=== PATIENT | female | born 1970 | race Caucasian/White ===

== ENCOUNTER 2016-08-01 07:23 | Day surgery (SDC) | payer OTHER ==
[2016-08-01] MEDS ORDERED: LR 1,000 ML ONE (07:57)
[2016-08-01] MEDS ORDERED: MYLICON DROPS (DOSE) MISC ONE (09:28)
[2016-08-01] MEDS ORDERED: DIPRIVAN 1% ONE ×2 (10:10)
[2016-08-01] MEDS ORDERED: FENTANYL ONE (10:10)
[2016-08-01] MEDS ORDERED: XYLOCAINE-MPF 2% ONE (10:18)
[2016-08-01] MEDS ORDERED: ZOFRAN ONE (10:18)
[2016-08-01 10:41] VITALS: BP 115/62
--- NOTE | 2016-08-01 11:22 | OPERATIVE NOTE ---
PROCEDURE DATE: 08/01/2016 REQUESTING PHYSICIAN: Bhupendra Tompkins MD PRIMARY CARE DOCTOR: Bhupendra Tompkins MD PROCEDURES PERFORMED: 1. Esophagogastroduodenoscopy. 2. Colonoscopy. PREPROCEDURE DIAGNOSES: 1. Liver cirrhosis, unclear etiology, suspected to be fatty liver, complicated with portal hypertension, history of esophageal varices. 2. Dysphagia. 3. Reflux disease. 4. Mild anemia. 5. Thrombocytopenia with a platelet count of 60,000. 6. Mild coagulopathy, INR 1.3. 7. Obesity. POSTPROCEDURE DIAGNOSES: 1. Esophageal varices starting at 30 cm, extending up to the gastroesophageal junction at 37 cm, 4 columns, located at 12 o'clock, 2 o'clock, 4 o'clock, and 7 o'clock position, grade 2. No evidence of any bleeding stigmata noted. 2. Z-line visualized at 37 cm. 3. Gastritis in the body and antrum in the form of mucosal edema, chronicity suggesting portal hypertensive gastropathy. 4. Evidence of gastric fundic varices, small, on retroflexion. 5. Normal duodenal bulb and 2nd portion of duodenum. 6. Stool throughout the colon, mild, small amount, which was lavaged. 7. Evidence of hemorrhoids, internal, on retroflexion. 8. No evidence of any colon polyps or colon masses noted. 9. No evidence any rectal varices noted. ESTIMATED BLOOD LOSS: Minimal. COMPLICATIONS: None. ANESTHESIA: Monitored anesthesia care. SPECIMENS: None. DESCRIPTION OF PROCEDURE: After informed consent from the patient and family, explaining the risks, benefits, indications, and alternatives of the procedure, the patient was prepared for EGD and colonoscopy. The risks of the procedure, including infection, bleeding, pain, trauma to the surrounding structures, perforation, and were explained to the patient, among others, and she acknowledged understanding and agreed to proceed. The patient was brought to the OR and turned into the left lateral position. A bite block was placed into the patient's mouth. After adequate monitored anesthesia care, the upper scope was gently introduced through the oral vestibule all the way to the 2nd portion of the duodenum. The esophagus was normal in the proximal 1/3. The middle and distal esophagus showed evidence of esophageal varices starting at 30 cm, grade 2 varices located at 12 o'clock, 2 o 'clock, 4 o'clock, and 7 o'clock position. This area was carefully examined. I did not visualize any evidence of any bleeding stigmata. The Z-line was visualized at 37 cm. The scope was withdrawn into the stomach, showing evidence of erythema, mucosal edema, chronicity suggesting portal hypertensive gastropathy. The mucosa appeared like snake skin appearance. The stomach revealed fundic varices, small, otherwise normal cardia and incisura on retroflexion. There was evidence of erythema in the body and antrum, suggesting mild gastritis. The duodenal bulb and 2nd portion of the duodenum appeared normal. The scope was withdrawn into the stomach. The air was aspirated as the scope was withdrawn. The patient tolerated the procedure well. The patient was turned around. Rectal exam was performed, which revealed normal rectal tone. No masses were felt. There was no blood on the examining finger. The colonoscope was gently induced through the anal orifice all the way to the cecum. The cecum was identified by landmarks, IC valve and appendiceal orifice. The colon was tortuous. There was stool throughout the colon, which was lavaged. Lesions less than 5 mm could have been missed. I did not visualize any major polyps, tumors, or masses in the colon. Retroflexion in the colon revealed internal hemorrhoids, grade 2. There was no evidence of any rectal varices. The air was aspirate as the scope was withdrawn. The patient tolerated the procedure well and is currently being monitored in the OR in stable condition. I discussed the findings with the patient's and family and all questions were answered. RECOMMENDATIONS: 1. The patient will follow up with me in the clinic 4 weeks from discharge. 2. The patient will be started on Centrum Silver, 1 capsule p.o. daily for 3 months. 3. The patient will continue on nadolol 40 mg once daily. Hold for SBP <100 and /or HR less than 55 per minute. 4. The patient will continue on Lasix 40 mg once daily and Aldactone 100 mg once daily and hold for systolic pressure less than 100 mmHg. 5. The patient will be continuing on Protonix once daily. We will discontinue the Prilosec. 6. The patient will be started on lactulose 30 mL p.o. t.i.d. and hold for more than 3 bowel movements in 24 hours. 7. The patient will follow up with me in the clinic in 4 weeks to discuss the labs and ultrasound, which was done, ordered as an outpatient. 8. We may have to refer the patient to [facility] as the patient has shown signs of decompensation in the form of worsening thrombocytopenia and worsening esophageal varices. 9. The patient was also instructed to lose weight to achieve an ideal BMI. The above plan was discussed with the patient and family and all questions were answered. MTDD
== END 2016-08-01 10:40 | disposition home or self-care (01) ==
LOC: ENDO 07:23
PROVIDERS: ATTEND Internal Medicine
DX: K74.60 Unspecified cirrhosis of liver (principal); K76.6 Portal hypertension; I85.10 Secondary esophageal varices without bleeding; K21.9 Gastro-esophageal reflux disease without esophagitis; R13.10 Dysphagia, unspecified; D64.9 Anemia, unspecified
CPT/HCPCS: J2405; J3010; J7120

== ENCOUNTER 2016-10-07 15:00 | Inpatient (IN) ==
[2016-10-07] MEDS: PROTONIX IV SCH (17:38)
[2016-10-07] MEDS: SODIUM CHLORIDE 0.9% INJ SCH (17:38)
[2016-10-07] MEDS: LEVAQUIN 500 MG/D5W 500 MG/100 ML IVPB IV SCH (17:39)
[2016-10-07 19:45] LABS: BASO% 0.4 % (0.0-0.8); EOS# 0.08 X1000 (0.0-0.7); EOS% 3.2 % (0.0-10.0); HEMOGLOBIN 9.9 g/dL (12.0-16.0); LYMPH# 0.59 X1000 (1.2-3.4); LYMPH% 23.7 % (20.5-51.1); MANUAL DIFF NEEDED? YES; MCH 37.8 PG (27-31); MCV 114.5 FL (81-99); MONO# 0.28 X1000 (0.11-0.59); MONO% 11.2 % (1.7-9.3); MPV 11.8 FL (7.4-10.4); NEUT% 61.5 % (42.2-75.2); PLT 67 X1000 (130-400); RBC 2.62 XMIL (4.2-5.4)
[2016-10-07 19:55] LABS: INR 1.37; PROTIME 14.7 Seconds (9.2-11.7); PTT 32.2 Seconds (22.0-36.0)
[2016-10-07 20:03] LABS: LYMPHS 18 % (21-51); MONO 4 % (1-9)
[2016-10-07 20:04] LABS: AGAP 10; ALBUMIN 2.4 g/dL (3.5-5.0); ALKALINE PHOSPHATASE 73 U/L (32-104); BUN 17 mg/dL (8-22); CALCIUM 7.6 mg/dL (8.8-10.2); CHLORIDE 108 mmol/L (98-107); COSMO 280; GOT 38 U/L (10-30); GPT 17 U/L (10-36); POTASSIUM 4.2 mmol/L (3.5-5.1); SODIUM 140 mmol/L (136-145); TCO2 22 mmol/L (25-35); TOTAL BILIRUBIN 2.17 mg/dL (0.20-1.00); TOTAL PROTEIN 5.2 g/dL (6.3-8.3)
[2016-10-07 20:58] LABS: HEMOGLOBIN A1C 4.2 % (4.8-6.0)
--- NOTE | 2016-10-07 21:21 | HISTORY AND PHYSICAL ---
HISTORY OF PRESENT ILLNESS: 46-year-old white female patient, known case of cirrhosis of the liver, esophageal varices, admitted with abdominal pain, leg swelling, mild shortness of breath. Not able to tolerate Aldactone. Patient did have some nausea. The patient was feeling weak. I evaluated patient in the office. The patient was jaundiced. Had bilateral leg swelling. Decided to admit the patient for further care. Discussed her my concern was subacute bacterial peritonitis. Patient did have ascites, vague generalized abdominal tenderness. She did have bilateral leg swelling. Bibasilar crepitation in the lung. PARTS CONTROL CLERK. Alert, awake able to move all 4 limbs. Overall plan discussed with the patient and she is in agreement. LAB DATA: Revealed hemoglobin 9.9, hematocrit 30, WBC count 2.49, platelet count was 67,000. The patient did have mild left shift. PT/INR 1.37, PTT was 32. D-dimer was 3.14. Total bilirubin was 2.17. The patient does have elevated D-dimer. She had history of mild shortness of breath, bilateral leg swelling. I am going to get CTA of the pulmonary artery for further evaluation. I already ordered venous Doppler. cc: Bhupendra Tompkins MD
[2016-10-08 03:35] LABS: URINE MICRO REVIEW NEEDED? NO; URINE SOURCE VOIDED
[2016-10-08 03:38] LABS: BILIRUBIN URINE NEGATIVE (NEGATIVE); BLOOD URINE NEGATIVE (NEGATIVE); COLOR YELLOW; GLUCOSE URINE NEGATIVE (NEGATIVE); LEUKOCYTES URINE NEGATIVE (NEGATIVE); NITRITE URINE NEGATIVE (NEGATIVE); PH URINE 6.5; PROTEIN URINE 30 mg/dL (NEGATIVE); TURBIDITY URINE CLEAR (CLEAR); UROBILINOGEN URINE 2 mg/dL (NORMAL)
[2016-10-08 03:39] LABS: UR EPITHELIAL CELLS <10 /HPF (<10); URINE BACTERIA 2+ /HPF; URINE RBC <10 /HPF (<10); URINE WBC <10 /HPF (<10)
--- NOTE | 2016-10-08 06:21 | PROGRESS NOTE ---
DATE: 10/08/2016 SUBJECTIVE: Ms. Moreau is feeling some better today. Her abdominal pain is less. She denied any nausea or vomiting. No high-grade fever or chills. No unusual shortness of breath. PHYSICAL EXAMINATION: Vital Signs: Her vital signs reviewed. Neck: Supple. No JVD. Lungs: Bilateral good air entry present. CVS: S1 and S2 heard. Abdomen: Soft, globular. Mild distention. Vague tenderness, though it is less. Extremities: Bilateral leg swelling, though it is less. HOT TAR ROOFER: Alert and awake. Able to move all 4 limbs. CONSIDERATION: The patient admitted with abdominal pain, suspected to be subacute bacterial peritonitis. Elevated D-dimer. CTA of the pulmonary arteries negative for pulmonary embolism. This was a preliminary report. CT scan of the abdomen and pelvis did reveal cirrhosis of the liver, ascites. I do not have official result. We will follow. The patient is scheduled to have a venous Doppler today and also continue rest of the treatment. Continue intravenous antibiotics. We did septic workup. Continue gastrointestinal prophylaxis. Overall plan discussed with the patient. She is in agreement. CT scan also revealed a small to moderate right pleural effusion, portal hypertension with large amount of ascites, and no pulmonary embolism. Plan discussed with the patient. She is in agreement. cc: Bhupendra Tompkins MD
--- NOTE | 2016-10-08 06:24 | HISTORY AND PHYSICAL ---
CHIEF COMPLAINT: Abdominal pain. HISTORY OF PRESENT ILLNESS: Ms. Moreau is a 46-year-old white female patient known case of cirrhosis of the liver secondary to fatty liver. The patient is noncompliant. She does have history of portal hypertension. Complaining of abdominal pain of 3 days' duration, the pain was diffuse abdominal pain, aching in nature, moderate in intensity, associated with nausea and vomiting. The patient vomited 3-4 times. The patient also had some diarrhea with mucus in the stool. Complaining of some chills and low-grade fever. I evaluated patient in the office. The patient did have diffuse abdominal tenderness. She does have mild ascites. With her history of cirrhosis I was concerned about subacute bacterial peritonitis. I decided to admit the patient for further workup care and treatment. Patient is in agreement. The patient is noncompliant to follow up. She is a vague and poor historian. The patient did have some runny nose, stuffy nose, sinus drainage. There was some blood in the sinus drainage. The patient did have cough with scanty sputum production. No typical chest pain or palpitations. Complaining of some abdominal distention. The patient was supposed to be on Aldactone, Lasix, nadolol, Phenergan, multivitamin and Protonix. The patient claims she was not able to tolerate her Aldactone and she was not taking it. Unquantified weight gain. At times, polyuria, polydipsia. Complaining of leg swelling. No heat or cold intolerance. She was feeling fatigued and tired. No further history available at this time. ALLERGIES: Oxycodone. HOME MEDICATIONS: 1. Lasix. 40 mg p.o. daily. 2. Aldactone 100 mg p.o. daily. 3. Protonix 40 mg daily. 4. Phenergan on p.r.n. basis. 5. Nadolol 40 mg p.o. daily. PAST MEDICAL HISTORY: 1. Fatty liver. 2. Cirrhosis of the liver. 3. Portal hypertension. 4. Gastritis. 5. The patient had abnormal Pap smear in the past. 6. Obesity. PERSONAL HISTORY: , lives with the . Nonsmoker. Denied alcohol and/or substance abuse. Independent in activities of daily living. FAMILY HISTORY: Father of pancreatic cancer. He also had abdominal and cerebral aneurysm and kidney stone. Mother is alive and had some arthritis. REVIEW OF SYSTEMS: As per HPI. PHYSICAL EXAMINATION: GENERAL: Middle-aged white female patient, in mild distress. VITAL SIGNS: On admission blood pressure 114/65, pulse 81, respirations 16, temperature 98.2 degrees. SKIN: Normal turgor. No petechiae. HEENT: Head atraumatic, normocephalic. [place] conjunctivae. Icteric sclerae. Extraocular muscle movement normal. Fundus sharp discs. Ears and nose benign.Neck: Supple. No JVD, thyromegaly or lymphadenopathy. Chest: Bilateral good air entry present. No rales or rhonchi. Cardiovascular: S1 and S2 heard. No gallop or thrill. Abdomen: Soft, globular. Bowel sounds present. Extremities: Globular. Diffuse abdominal tenderness. More tenderness right upper quadrant. Mild ascites. No guarding or rigidity. Extremities: Bilateral leg swelling. No acute DVT. Peripheral pulsation intact. MUNITIONS HANDLER SUPERVISOR: Alert, awake, oriented x3. Cranial nerves 2-12 grossly intact. Deep tendon reflex 2+. Plantars were downgoing. Muscle power 4/5 all 4 limbs. LABORATORY DATA: WBC count 2.49, hemoglobin 9.9, hematocrit 30, platelet count 69,000. The patient does have some left shift and macrocytosis. PT/INR 1.37 D-dimer 3.14. Electrolytes fairly benign. Hemoglobin A1c was 4.2, calcium 7.6, albumin 2.4, corrected calcium was normal. Urinalysis did reveal 2+ bacteria. Urine culture result is pending. Patient admitted with abdominal pain in a patient with cirrhosis of the liver ascites. I would like to rule out subacute bacterial peritonitis. Patient does have pancytopenia most likely due to her chronic liver disease and hypersplenism. She does have abnormal urinalysis. I am going to wait for urine culture. The patient does have history suggestive of esophageal varices, gastritis and reflux disease. Had elevated D-dimer. I did discuss with the patient about risk of contrast induced nephropathy. The patient understood and agreed. I did CT of the pulmonary artery. Also did CT scan of the abdomen and pelvis for further evaluation. I did discuss her presentation with her rating specialist who is going to evaluate the patient today. We will get did a venous Doppler of the lower limbs. Ultrasound-guided ascites tape and analysis of the ascitic fluid. cc: Bhupendra Tompkins MD
--- NOTE | 2016-10-08 08:11 | Diag Imaging Result Doc PS360 ---
CHEST-2 VIEWS - 10/08/2016 6:13 AM INDICATION: Abdominal pain COMPARISON: 07/18/2016 FINDINGS: There is a trace right pleural effusion. Otherwise the lungs are clear and the heart size is normal. No pneumothorax. IMPRESSION: Trace right pleural effusion, otherwise negative. Electronically signed by Damien Pollock 10/08/2016 7:40 AM
[2016-10-08] MEDS ORDERED: LASIX PO SCH (09:00)
[2016-10-08] MEDS ORDERED: ALDACTONE PO SCH (09:00)
--- NOTE | 2016-10-08 09:29 | Diag Imaging Result Doc PS360 ---
US PARACENTESIS - 10/08/2016 INDICATION: Ascites COMPARISON: None FINDINGS: The risks and benefits of the procedure were discussed with the patient. All questions were answered. Written and verbal consent was obtained. Ultrasound scanning demonstrated ascites. Overlying skin was prepped and draped in sterile fashion. Anesthesia was achieved with injection of 10 cc 1% lidocaine. The paracentesis catheter was advanced until the return of ascites fluid. 2 L was aspirated. The catheter was withdrawn intact. The patient reported no symptoms from the procedure. IMPRESSION: Successful and uncomplicated ultrasound-guided paracentesis. Electronically signed by Damien Pollock 10/08/2016 9:27 AM
[2016-10-08] MEDS: CORGARD PO SCH (10:15)
--- NOTE | 2016-10-08 10:40 | Diag Imaging Result Doc PS360 ---
EXAM: ABD/PELVIS/PULM ARTERIES COMPARISON: None. FINDINGS: CTA CHEST: There is mild motion artifact, which may limit sensitivity for detecting small pulmonary emboli. However, there is no definite pulmonary artery filling defect to indicate pulmonary embolism. There is no evidence of aortic aneurysm. There are a few calcified mediastinal and right hilar lymph nodes indicating prior granulomatous disease. Otherwise, there is no evidence of significant mediastinal or hilar lymphadenopathy. There are a few paraesophageal varices, mainly seen at the distal esophagus. There is a small to moderate-sized right pleural effusion. There is trace patchy subsegmental atelectasis bilaterally. Lungs are grossly clear, otherwise. Abdomen/pelvis: There has been a previous cholecystectomy. The liver exhibits a very nodular contour compatible with cirrhosis. No well-defined hepatic masses identified. There is marked splenomegaly. The spleen measures up to 19.2 cm in the greatest axial length. There are a few dilated varices near the splenic hilum and near to ventral abdominal wall. There are larger varices in the periaortic region. There is moderate to large ascites throughout the abdomen and pelvis. There is marked right renal atrophy. There is evidence of a prior appendectomy. There is no evidence of bowel obstruction. The remainder of the solid viscera of the abdomen and pelvis and the remainder of the GI tract are essentially unremarkable. There is surrounding soft tissue anasarca. IMPRESSION: 1.No evidence of pulmonary embolism. 2.Small to moderate-sized right pleural effusion. 3.Cirrhosis. 4.Marked splenomegaly with intra-abdominal varices consistent with portal hypertension. 5.Moderate to large ascites and body wall anasarca. 6.Other incidental/nonacute findings detailed above. Electronically signed by Paolo Atwood 10/08/2016 10:38 AM
[2016-10-08] MEDS: LEVAQUIN 500 MG/D5W 500 MG/100 ML IVPB IV SCH (17:13)
[2016-10-08] MEDS: SODIUM CHLORIDE 0.9% INJ SCH (17:14)
[2016-10-08] MEDS: PROTONIX IV SCH (17:14)
[2016-10-08 18:16] LABS: TOTAL PROT BODY FLUID 1.5 g/dL
[2016-10-08 18:52] LABS: DIFF NEEDED? YES; MONOS 76 %; POLYS 24 %; WBC BF 270 /cumm
[2016-10-08] MEDS: CENTRUM SILVER PO SCH (20:47)
[2016-10-08] MEDS: ICAR-C PO SCH (20:47)
--- NOTE | 2016-10-09 07:29 | PROGRESS NOTE ---
DATE: 10/09/2016 SUBJECTIVELY: Ms. Moreau is doing better. The patient had ultrasound guarded paracentesis done yesterday. Two liters of ascitic fluid were removed. Ascitic fluid had 270 WBCs, 24 polynuclear cells, and 76 mononuclear cells. The Gram stain of the fluid and culture are still pending. Patient's abdominal pain improved. She is tolerating food well. No high-grade fever or chills. No chest pain. OBJECTIVE: Vital Signs: Reviewed. She had low-grade fever of 99.4 degrees solutions developer today. Lungs: Bibasilar crepitations. Heart: S1 and S2 heard. Abdomen: Soft, globular. Bowel sounds present. Less tense. Extremities: No cyanosis, clubbing. Leg swelling better. BUSINESS ANALYST: Alert, awake. Able to move all 4 limbs. CONSIDERATION: 1. Ascites. 2. Cirrhosis of the liver. 3. Portal hypertension. 4. Deep vein thrombosis and pulmonary embolism rule out. PLAN: I am going to start her on SCD. Waiting for GI evaluation. Continue antibiotics. Overall plan discussed with the patient. She is in agreement. cc: Bhupendra Tompkins MD
[2016-10-09 07:47] LABS: BASO% 0.3 % (0.0-0.8); EOS# 0.07 X1000 (0.0-0.7); EOS% 2.4 % (0.0-10.0); HEMATOCRIT 31.3 % (37.0-47.0); HEMOGLOBIN 10.4 g/dL (12.0-16.0); LYMPH# 1.03 X1000 (1.2-3.4); LYMPH% 35.6 % (20.5-51.1); MANUAL DIFF NEEDED? YES; MCHC 33.2 g/dL (33-37); MCV 114.2 FL (81-99); MONO# 0.24 X1000 (0.11-0.59); MONO% 8.3 % (1.7-9.3); MPV 12.9 FL (7.4-10.4); NEUT% 53.4 % (42.2-75.2); PLT 77 X1000 (130-400); RBC 2.74 XMIL (4.2-5.4)
[2016-10-09 08:19] LABS: ALBUMIN 2.4 g/dL (3.5-5.0); MAGNESIUM 1.8 mg/dL (1.5-2.7); POTASSIUM 3.9 mmol/L (3.5-5.1); TOTAL BILIRUBIN 1.37 mg/dL (0.20-1.00); TOTAL PROTEIN 5.2 g/dL (6.3-8.3)
[2016-10-09 09:31] LABS: HYPOCHROM 1+; LYMPHS 24 % (21-51); MONO 18 % (1-9)
[2016-10-09] MEDS: CENTRUM SILVER PO SCH ×3 (09:55→20:17)
[2016-10-09] MEDS: ICAR-C PO SCH ×3 (09:56→20:17)
[2016-10-09] MEDS: CORGARD PO SCH (09:56)
[2016-10-09] MEDS: ALDACTONE PO SCH (09:56)
--- NOTE | 2016-10-09 11:58 | CONSULTATION ---
DATE OF CONSULTATION: 10/09/2016 REASONS FOR CONSULTATION: Increasing abdominal distention and abdominal discomfort. HISTORY OF PRESENT ILLNESS: This is a pleasant, 46-year-old lady with a known history of chronic liver disease secondary to fatty liver and associated cirrhosis. Patient has been noncompliant with her medications including diuretics. Patient at home had increasing abdominal distention and had some discomfort for the [address] Tompkins has admitted her for further evaluation and more so to rule out subacute bacterial peritonitis, as well as therapeutic paracentesis. ALLERGIES: Allergic to oxycodone. HOME MEDICATION: Lasix 40 mg, Aldactone 100 mg, Protonix 40 mg, nadolol 40 mg p.o. daily. PAST MEDICAL HISTORY: Fatty liver, cirrhosis of the liver, portal hypertension, gastritis, and obesity. PERSONAL HISTORY: . Lives with her . Nonsmoker. Does not smoke or drink. No substance abuse. FAMILY HISTORY: Father with pancreatic cancer. Mother is alive and has arthritis. REVIEW OF SYSTEMS: As in HPI. PHYSICAL EXAMINATION: General: Reveals a pleasant, middle-aged lady in mild distress. Vital Signs: On admission, blood pressure 114/65, pulse 81, respirations 16, temperature 98.2 degrees. HEENT: No conjunctival pallor. There is scleral icterus present. Heart: Normal first and second heart sounds. Lungs: Decreased breath sounds at the right base. Abdomen: Distended, somewhat tender on deep palpation but no rebound or rigidity suggestive of any peritoneal signs. Bowel sounds present and normal. Extremities: Bilateral edema present. Central Nervous System: No signs of hepatic encephalopathy. No asterixis. She is alert and oriented. LABORATORY DATA: White count 2.49, hematocrit 30, platelets 69,000. INR 1.37. Albumin low at 2.4. CT scan of the abdomen showed new onset right pleural effusion, increasing ascites, and abdominal wall anasarca. IMPRESSION AND PLAN: 1. Cirrhosis of the liver. 2. Ascites secondary to #1 with increasing shortness of breath. 3. Rule out subacute bacterial peritonitis. 4. Hypersplenism. 5. Coagulopathy secondary to cirrhosis. 6. Rule out urinary tract infection. PLAN: Patient is going down for abdominal paracentesis. We will follow up the cultures. Patient is already on Levaquin. We will not extend until we get the fluid. It does not seem that she has SBP; however, SBP can happen without any [place] peritoneal signs. We will also check the urinalysis. Continue the diuretics. We will follow. cc: MD Bhupendra Combs MD
--- NOTE | 2016-10-09 14:17 | PROGRESS NOTE ---
DATE: 10/09/2016 GASTROENTEROLOGY FOLLOWUP: SUBJECTIVE: Patient currently sitting in a chair. She denies any new complaints. She was able to have paracentesis done on 09/28/2016. At that time 2 L of fluid was aspirated. According to the radiologist's note, no complications were noted out of the procedure. The ascitic fluid test showed evidence of increased white cells more than 270, and out of which 24% were PMN white cells. Her fluid albumin was 0.7. Her SAAG is more than 1.1, suggesting portal hypertension, cirrhosis with ascites. Her peritoneal fluid culture shows no growth, no anaerobes. Blood culture has been negative x2. Stool for white cells are none seen. Stool for C. difficile toxin is negative and stool for C. difficile antigen is also negative. The patient denies any nausea or vomiting. She denies any fever, rigors, or chills. OBJECTIVE: Vitals: Temperature of 98.2, pulse rate of 76, respiratory rate of 16, blood pressure 101/48, saturating 100% on room air. Body weight of 222 pounds, 4.8 ounces. BMI of 38.2 kg/m2. General: The patient is obese, sitting in chair, in no acute distress. HEENT: Pale conjunctivae. No icterus. Neck: Supple. Abdomen: Obese, soft, nontender, nondistended. No guarding. No rebound. Extremities: No cyanosis or clubbing. Neurologic: She is alert, awake, oriented x3. DIAGNOSTIC DATA: Labs: Hemoglobin and hematocrit is 10.4 and 31.3, white count of 2.89, platelet count of 77,000, MCV of 114.2, INR of 1.37, PT of 14.7, PTT of 32.2. Sodium of 139, potassium 3.9, chloride 108, bicarb 24, anion gap 7, BUN of 15, creatinine 1, glucose of 85, calcium is 8, magnesium 1.8. Total bilirubin is 1.37. AST 37, ALT 15, alkaline phosphatase 71, total protein 5.2, albumin of 2.4, folate of 15. Her urinalysis showing 2 urobilinogen plus mild protein. 1. Abdominal pelvic CT scan done on 10/07/2016 showed no evidence of pulmonary embolism. 2. Small to moderate side size right sided pleural effusion. 3. Cirrhosis. 4. Marked splenomegaly with intra-abdominal varices consistent with portal hypertension. 5. Moderate to large ascites and body wall anasarca. 6. Evidence of prior appendectomy. IMPRESSION AND PLAN: 1. Liver cirrhosis secondary to nonalcoholic steatohepatitis complicated with portal hypertension, ascites, thrombocytopenia. In this regard we will avoid any hepatotoxic drugs. We will give her low-salt diet less than 2 g in 24 hours. We will restrict the free fluid to less than 1.5 L in 24 hours. We will start the patient on low dose Lasix 20 mg daily and Aldactone 50 mg once daily and hold them if the patient's potassium is more than 5 or creatinine is more than 1.5. We will watch daily weight and watch ins and outs. 2. Likely spontaneous bacterial peritonitis with a high white count in the ascitic tap while being on Levaquin. In this regard she will continue on Levaquin 500 mg once daily for 2 weeks. We will start on albumin 25 g IV once daily for 3 days. 3. Obesity. The patient is counseled to lose weight. 4. Anemia. Continue watch and type and cross, and transfuse as needed. 5. Continue multivitamin and iron b.i.d. 6. Gastrointestinal prophylaxis with proton pump inhibitors. 7. Bowel regimen. We will start her on lactulose. We will also check her ammonia level as well. 8. The patient was also instructed to continue her followup with [facility]. She had seen them once last year. The above plan of care was discussed with the patient and all questions answered. cc: MD Bhupendra Hidalgo MD
[2016-10-09] MEDS: SODIUM CHLORIDE 0.9% INJ SCH (16:07)
[2016-10-09] MEDS: PROTONIX IV SCH (16:07)
[2016-10-09] MEDS: LACTULOSE PO SCH ×3 (16:07→20:17)
[2016-10-09] MEDS: ALBUMIN 25% IV SCH (16:42)
[2016-10-09] MEDS: LEVAQUIN 500 MG/D5W 500 MG/100 ML IVPB IV SCH (17:13)
--- NOTE | 2016-10-10 07:11 | PROGRESS NOTE ---
DATE: 10/10/2016 SUBJECTIVE: Ms. Moreau is doing better. Her abdominal pain is improving. She denied any high- grade fever or chills. No nausea or vomiting. Denied any chest pain. GI recommendation noted. No unusual cough or expectoration. PHYSICAL EXAMINATION: Vital Signs: Her vital signs reviewed. Lungs: Bilateral good air entry present. CVS: S1 and S2 heard. Abdomen: Soft, globular. Bowel sounds present. The patient still had some ascites. Extremities: No cyanosis, clubbing. No acute DVT. PIPELINE WELDER: Alert, awake. Able to move all 4 limbs. LAB DATA: Done yesterday, hemoglobin 10.4, hematocrit 31.3, WBC count 2.89, platelet count 77,000. Electrolyte results also reviewed. Total bilirubin 1.37. PROBLEM LIST: 1. Cirrhosis of the liver. 2. Possible subacute bacterial peritonitis. 3. Portal hypertension. 4. Pancytopenia, most likely due to her chronic liver disease. PLAN: Patient is refusing to wear her SCDs. We did explained her risk of DVT. Patient is not a candidate for Lovenox because of her chronic liver disease. We encouraged early ambulation. We will continue current treatment. Peritoneal fluid culture, there was no growth. Stool workup is negative. The patient is getting IV albumin. If she continued to do well, I am planning to discharge her home tomorrow. cc: Bhupendra Tompkins MD
--- NOTE | 2016-10-10 09:38 | Extremity Venous Study ---
PROCEDURE NAME: Venous U/S Bilateral Legs - 10/07/2016 REFERRING PHYSICIAN: Bhupendra Tompkins MD INTERPRETING PHYSICIAN: Joseph Sinha MD TRANSFER CONTROLLER: [place] INDICATIONS: The patient has edema in the legs. FINDINGS: Bilateral lower extremity venous images accomplished. The common femoral, superficial femoral, deep femoral, popliteal, posterior tibial, peroneal, and greater saphenous are imaged bilaterally. The Doppler is used to evaluate the veins for spontaneity, phasicity, respiratory excursion, and distal augmentation. All veins are compressible. No intraluminal clot is seen. INTERPRETATION: No evidence of deep or superficial venous thrombosis in either lower extremity veins identified. cc: MD Bhupendra Venegas MD
[2016-10-10] MEDS: ALDACTONE PO SCH (09:46)
[2016-10-10] MEDS: ICAR-C PO SCH ×3 (09:46→20:17)
[2016-10-10] MEDS: LACTULOSE PO SCH ×3 (09:46→20:17)
[2016-10-10] MEDS: CORGARD PO SCH (09:47)
[2016-10-10] MEDS: CENTRUM SILVER PO SCH ×3 (09:47→20:17)
[2016-10-10] MEDS: LASIX PO SCH (09:47)
[2016-10-10] MEDS: ALBUMIN 25% IV SCH (09:48)
--- NOTE | 2016-10-10 11:24 | PROGRESS NOTE ---
DATE: 10/10/2016 SUBJECTIVE: Patient is currently resting in bed. She denies any fevers, rigors, chills, nausea, or vomiting. She has been having good bowel movements. She had 2 bowel movements today which were soft. She denies noticing any blood in the stools. She is feeling better. She is going to be discharged tomorrow. PHYSICAL EXAMINATION: Vital Signs: Temperature 98.3, pulse rate 72, respiratory rate 18, blood pressure 110/52, saturating 92% on room air. General Appearance: The is a moderately built, moderately nourished, sitting in bed, in no acute distress. HEENT: Mild pallor. No icterus. Pupils equal, react to light. Neck: Supple. Abdomen: Soft. No guarding, no rebound. Bowel sounds are present. Mild ascites, mild distention noted. Extremities: No cyanosis, clubbing. Neurologic: She is alert, awake, oriented x3. LABS: Her hemoglobin and hematocrit are 10.4 and 31.3, white count of 2.89, platelet count of 77,000, MCV of 114.2. INR of 1.37, PT of 14.7, PTT of 32.2. Sodium 139, potassium 3.9, chloride 100, bicarb 24, anion gap of 7, BUN of 15, creatinine of 1, glucose of 85, calcium is 8, magnesium 1.8. Total bilirubin is 1.37, AST 37, ALT 15, alkaline phosphatase is 71, total protein 5.2, albumin of 2.4, ammonia of 67. Urinalysis positive protein. Peritoneal fluid culture has been negative. Blood cultures negative. C. difficile toxin has been negative. Urine culture negative. IMPRESSION AND PLAN: 1. Liver cirrhosis attributed to fatty liver disease complicated with thrombocytopenia, mild coagulopathy, hypoalbuminemia, ascites, hepatic encephalopathy. In this regard, I will continue to avoid hepatotoxic drugs. She will continue on low sodium diet, less than 2 g per 24 hours. 2. Restrict free fluid to less than 1.5 L per 24 hours. 3. Continue Lasix 20 mg once daily and Aldactone 50 mg once daily, and hold for creatinine more than 1.5 and systolic blood pressure less than 100. We will slowly advance the Lasix to 40 mg once daily and Aldactone to 100 mg daily if her kidney functions are normal. 4. Start on lactulose 30 mL b.i.d. for hyperammonemia and hepatic encephalopathy. 5. Anemia. She will continue Iron C b.i.d. 6. Macrocytic anemia which is likely secondary to chronic liver disease. Her B12 and folate level are normal. 7. Obesity. Patient was counseled to lose weight. 8. Likely spontaneous bacterial peritonitis with evidence of higher white count in the ascitic tap. We will continue Levaquin 500 mg daily for 2 weeks. She will continue on albumin once daily for 3 days. Tomorrow, most likely, if she is feeling better and labs are stable, she can probably be discharged home. I encouraged the patient to keep her followup with the [facility] liver transplant team. She will follow up with me in the office as scheduled every 6 months. We will need to check her labs and ultrasound every 6 months. 9. Above plan of care was discussed with the patient and all questions were answered. cc: MD Bhupendra Hidalgo MD
[2016-10-10] MEDS: SODIUM CHLORIDE 0.9% INJ SCH (16:13)
[2016-10-10] MEDS: PROTONIX IV SCH (16:13)
[2016-10-10] MEDS: LEVAQUIN 500 MG/D5W 500 MG/100 ML IVPB IV SCH (16:14)
[2016-10-11 05:21] LABS: EOS# 0.06 X1000 (0.0-0.7); EOS% 2.3 % (0.0-10.0); HEMATOCRIT 29.7 % (37.0-47.0); LYMPH# 0.75 X1000 (1.2-3.4); LYMPH% 28.7 % (20.5-51.1); MANUAL DIFF NEEDED? NO; MCHC 33.7 g/dL (33-37); MCV 112.9 FL (81-99); MONO# 0.28 X1000 (0.11-0.59); MONO% 10.7 % (1.7-9.3); NEUT% 58.3 % (42.2-75.2); PLT 57 X1000 (130-400); RBC 2.63 XMIL (4.2-5.4)
[2016-10-11 05:29] LABS: ALBUMIN 2.5 g/dL (3.5-5.0); POTASSIUM 4.1 mmol/L (3.5-5.1); TOTAL BILIRUBIN 1.34 mg/dL (0.20-1.00); TOTAL PROTEIN 5.1 g/dL (6.3-8.3)
--- NOTE | 2016-10-11 07:41 | DISCHARGE SUMMARY ---
ADMISSION DATE: 10/07/2016 DISCHARGE DATE: 10/11/2016 FINAL DISCHARGE DIAGNOSES: 1. Ascites secondary to nonalcoholic cirrhosis of the liver. 2. Possible subacute bacterial peritonitis. 3. Esophageal varices and portal hypertension. 4. Hypoalbuminemia. 5. Gastritis. 6. Reflux disease. 7. Elevated D-dimer. 8. Deep venous thrombosis and pulmonary embolism ruled out. HOSPITAL COURSE: Ms Moreau is a 46-year-old, white female patient, known case of cirrhosis of the liver came with abdominal pain, nausea, vomiting and some diarrhea. On exam patient did have generalized abdominal tenderness. I was concerned about subacute bacterial peritonitis. I evaluated the patient and decided to admit her for further care. HOSPITAL COURSE: We started patient on antibiotics. We did septic workup. The patient underwent ultrasound-guided peritoneal ascites tape. Fluid did have some WBC. Culture and Gram stain were negative. Tape done after patient was started on antibiotics. We decided to treat patient as subacute bacterial peritonitis. The patient had elevated D-dimer. We did venous Doppler and CTA of the pulmonary artery. Both were negative for DVT and pulmonary embolism. The patient also had therapeutic tape. They removed 2 L of ascitic fluid. Patient was started on antibiotics. The patient also had some hepatic encephalopathy with elevated ammonia level. The patient was given lactulose. Clinically the patient's condition improved. Abdominal pain improved. PHYSICAL EXAMINATION: Nausea and vomiting much better. Patient is tolerating medication well. Vital signs: Noted. Neck: Supple. No JVD. Lungs: Bilateral good air entry present. CVS: S1 and S2 heard. Abdomen: Soft, globular. Bowel sounds present. Less tense, nontender. BREAD STACKER: Alert, awake. Able to move all 4 limbs. Leg swelling also improved. LAB DATA: Done today hemoglobin 10, hematocrit 29.7. WBC count 2.61. Platelet count 57,000. The patient does have portal hypertension and hypersplenism. No active bleeding. Her bilirubin improved to 1.34. Magnesium done last was 1.8. LFT also showed improvement. Potassium was 4.1. Peritoneal fluid WBC count was 270 with neutrophils 24, mononuclear cells 76. Peritoneal fluid cultures were negative. Patient had diarrhea. We did stool workup. It was negative for WBC and C. difficile toxin. Patient's CT scan of the abdomen, pelvis and chest no evidence of pulmonary embolism. Small to moderate size right pleural effusion, cirrhosis of the liver. Moderate splenomegaly with intra-abdominal varices consistent with portal hypertension, moderate to large ascites and body wall anasarca. Discussed at length with the patient to take low-sodium diet. Take medication regularly. Watch for bleeding. 1.5 L fluid restriction. Avoid hepatotoxic medication. Follow up with me next week. Follow up with Dr. Duarte as scheduled. Advised her to keep the appointment with her market manager at [facility]. In case of more distress, call us back or go to emergency room. cc: Bhupendra Tompkins MD
[2016-10-11 07:55] VITALS: BP 116/46
[2016-10-11] MEDS: ALBUMIN 25% IV SCH (08:29)
[2016-10-11] MEDS: ALDACTONE PO SCH (08:29)
[2016-10-11] MEDS: ICAR-C PO SCH (08:29)
[2016-10-11] MEDS: CENTRUM SILVER PO SCH (08:29)
[2016-10-11] MEDS: LACTULOSE PO SCH (08:29)
[2016-10-11] MEDS: CORGARD PO SCH (08:29)
[2016-10-11] MEDS: LASIX PO SCH (09:31)
== END 2016-10-11 11:25 | disposition home or self-care (01) ==
LOC: DIRADM 15:00 → 4N 16:13
PROVIDERS: ADMIT Internal Medicine; ATTEND Internal Medicine

== ENCOUNTER 2017-01-20 17:23 | Inpatient (IN) ==
[2017-01-20 18:08] LABS: BASO% 0.2 % (0.0-0.8); EOS# 0.43 X1000 (0.0-0.7); EOS% 8.6 % (0.0-10.0); HEMATOCRIT 35.8 % (37.0-47.0); HEMOGLOBIN 12.2 g/dL (12.0-16.0); LYMPH# 1.64 X1000 (1.2-3.4); LYMPH% 32.7 % (20.5-51.1); MANUAL DIFF NEEDED? NO; MCH 38.7 PG (27-31); MCHC 34.1 g/dL (33-37); MCV 113.7 FL (81-99); MONO# 0.36 X1000 (0.11-0.59); MONO% 7.2 % (1.7-9.3); NEUT% 51.3 % (42.2-75.2); PLT 95 X1000 (130-400); RBC 3.15 XMIL (4.2-5.4)
--- NOTE | 2017-01-20 18:09 | Diag Imaging Result Doc PS360 ---
EXAM: CHEST-2 VIEWS HISTORY: CP TECHNIQUE: PA and lateral chest COMMENT: There is a large right pleural effusion. This was not present or much smaller on 10/08/2016. Considerable compressive atelectasis is present in the right lower lobe and middle lobe. Left lung is stable in appearance. The heart size does not appear to be enlarged. IMPRESSION: Massive right pleural effusion with atelectasis. Electronically signed by Davin Starks 01/20/2017 6:06 PM
[2017-01-20 18:13] LABS: INR 1.21; PROTIME 12.9 Seconds (9.2-11.7); PTT 30.8 Seconds (22.0-36.0)
[2017-01-20 18:23] LABS: AGAP 10; ALBUMIN 3.1 g/dL (3.5-5.0); ALKALINE PHOSPHATASE 101 U/L (32-104); BUN 16 mg/dL (8-22); CALCIUM 8.8 mg/dL (8.8-10.2); CHLORIDE 104 mmol/L (98-107); CK PROFILE 75 U/L (24-173); COSMO 274; GOT 33 U/L (10-30); GPT 15 U/L (10-36); MAGNESIUM 1.7 mg/dL (1.5-2.7); SODIUM 137 mmol/L (136-145); TCO2 23 mmol/L (25-35); TOTAL BILIRUBIN 1.39 mg/dL (0.20-1.00); TOTAL PROTEIN 6.5 g/dL (6.3-8.3)
--- NOTE | 2017-01-20 18:50 | ED EKG INTERP ---
This chart was entered by Neel Foley Scribe, acting as scribe for Jacques Lezama MD. EKG Interpretation - EKG Time of EKG reading by physician:: 17:50 EKG Read and Signed by:: Jax Nelson EKG Interpretation (*Must complete 3 of following elements*): Normal Rate: 76 Rhythm: NSR [place]: normal QRS: normal HI Interval: normal ST Wave: normal Attestation - Physician/ KASIA Attestation Patient care was provided by Advanced Practice Provider:: No The physician spent face to face time with patient:: Yes Advanced Practice Provider documentation review:: Supervising physician onsite and consulted in the evaluation and care of this patient. The physician did have a face to face encounter with the patient. This chart was documented by the indicated scribe, (Neel Foley Scribe) and accurately reflects the services I performed and decisions made by me, Jacques Lezama MD, as attested by the provider's signature.
--- NOTE | 2017-01-20 19:46 | PROVIDER DOCUMENTATION ---
This chart was entered by Neel Foley Scribe, acting as scribe for Jacques Lezama MD. HPI-Respiratory General - General Chief Complaint: Shortness of Breath Stated Complaint: SOB, Time Seen by Provider: 01/20/17 18:49 Source: patient Allergies/Adverse Reactions: Patient Allergies Allergy/AdvReac Type Severity Reaction Status Date / Time oxycodone HCl * Allergy Intermediate SWELLING Verified 01/20/17 19:24 [From OxyContin] Home Medications: Home Medication List Medication Instructions Recorded Confirmed Last Taken Type Nadolol 40 mg PO DAILY 09/14/14 01/20/17 01/20/17 07:00 History Omeprazole [Prilosec] 20 mg PO DAILY 07/31/16 01/20/17 01/20/17 07:00 History Pantoprazole [Protonix] 40 mg PO DAILY 07/31/16 01/20/17 01/20/17 07:00 History Multivitamins/Minerals [Centrum 1 each PO DAILY #0 tablet 08/01/16 01/20/17 07:00 Rx Silver] Furosemide [Lasix] 20 mg PO DAILY #0 10/11/16 01/20/17 01/20/17 07:00 Rx Iron Carbonyl/Ascorbic Acid 1 each PO BID tablet 10/11/16 01/20/17 01/20/17 07: 00 Rx [Icar-C] Spironolactone 50 mg PO DAILY #0 10/11/16 01/20/17 01/20/17 07:00 Rx - History of Present Illness-Resp Nature of Presenting Problem: Pt is a 46 yowf who presents to ER with CC of SOB x2 days. Pt reports that she has developed right sided pleuritic chest pains on deep inspirations and SOB. Pt also reports that she has lost 40 pounds in the last 1.5 months. Pt also reports dry cough and chills. Pt reports that she was admitted 1.5 months ago and had an abdominal paracentesis to remove fluid caused by her cirrhosis. Quality of Pain: reports: other (SOB) Severity in ED: reports: moderate Onset/Duration: reports: 2 days ago Timing: reports: still present, getting worse Cough Quality/Degree: reports: moderate, dry cough Associated Symptoms: reports: chest pain/soreness, cough, fever/chills (chills without fever), hurts to breathe, shortness of breath, short of breath. denies : heart racing, hyperventilating, sinus pain, sore throat, sweaty, wheezing Similar Symptoms Previously?: Yes Recently seen or treated by another doctor?: Yes Review of Systems - Adult - REVIEW OF SYSTEMS - ADULT Constitutional: reports: chills. denies: fever, fatique, night sweats, weight gain, weight loss Eyes: reports: no symptoms reported Ears, Nose, Mouth & Throat: reports: no symptoms reported Cardiovascular: reports: no symptoms reported Respiratory: reports: cough, pleurisy, shortness of breath. denies: chronic cough, dyspnea on exertion, excessive sputum production, hemoptysis, wheezing Gastrointestinal: reports: no symptoms reported Genitourinary: reports: no symptoms reported Musculoskeletal: reports: no symptoms reported Integumentary: reports: no symptoms reported Neurological: reports: no symptoms reported Psychiatric: reports: no symptoms reported Endocrine: reports: no symptoms reported Hematologic/Lymphatic: reports: no symptoms reported Allergic/Immunologic: reports: no symptoms reported All Other Systems: Reviewed and Negative Past History - Adult - PAST MEDICAL HISTORY-ADULT Review of Records: reports: Nursing Assessment Review, Medications Reviewed Cardiovascular: reports: HTN Gastrointestinal: reports: hepatitis (C), other (cirrhosis) Endocrine/Immune: reports: anemia - PRIOR SURGERIES/PROCEDURES Surgical/Procedure History: reports: appendectomy, cholecystectomy - IMMUNIZATION STATUS Childhood Immunizations: See Nurse Assessment Flu Vaccine: See Nurse Assessment Physical Exam-General - PHYSICAL EXAM-ADULT Initial Vital Signs Reviewed: Yes - CONSTITUTIONAL General Appearance: appears well, alert, mild distress, lethargic - EYES Eyes: PERRL/EOMI, pink conjunctivae - NECK Neck: non-tender, full range of motion, supple, normal inspection. negative: limited range of motion, lymphadenopathy - RESPIRATORY Respiratory: chest non-tender, lungs clear, no respiratory distress, no accessory muscle use, decreased breath sounds (on right side). negative: normal breath sounds, no pleuratic chest pain, wheezing - CARDIOVASCULAR Cardiovascular: normal peripheral pulses, regular rate, rhythm. negative: bradycardia, tachycardia, irregularly irregular - GASTROINTESTINAL (ABDOMEN) Abdominal Exam: normal bowel sounds, non tender, soft, no organomegaly, no pulsatile mass. negative: guarding, rebound, tenderness - MUSCULOSKELETAL Back Exam: normal inspection, no CVA tenderness, no vertebral tenderness. negative: CVA tenderness, vertebral tenderness Extremity: normal range of motion, non-tender, normal gait, normal inspection, no pedal edema, no calf tenderness, normal capillary refill, pelvis stable. negative: deformity, erythema, inflammation, swelling, tenderness - SKIN Integumentary: normal color, normal turgor, warm/dry. negative: abrasion(s), diaphoresis, ecchymosis, erythema, laceration(s), swelling, tenderness, warm - PSYCHIATRIC Psych/Mental Status: normal mood/affect, normal thought content, normal thought process, oriented x 3 Progress - PLAN OF CARE/RESULTS Progress/Plan/Lab Results: Orders Category Date Time Status Admit - [facility] Routine AdmDCTranf 01/20/17 22:44 Ordered Cardiac Monitoring DIRECTED Care 01/20/17 17:46 Completed Vital Signs Order Q 4-HR ASSESS Care 01/20/17 22:44 Active Z-Document. for Tele Applied ORDERED Care 01/20/17 22:44 Completed Heart Healthy Diet Diet 01/20/17 21:26 Completed NPO Diet 01/21/17 00:01 Completed CHEST-2 VIEWS [RAD] Stat Exams 01/20/17 17:46 Completed CTA [CT ANGIOGRM/PULMONARY ARTERIES] [CT] Stat Exams 01/20/17 18:50 Completed CBC WITH ELECTRONIC DIFF [HEME] Stat Lab 01/20/17 17:38 Completed CK PROFILE [SP CHEM] Stat Lab 01/20/17 17:38 Completed COMPREHENSIVE METABOLIC PANEL [CHEM] Stat Lab 01/20/17 17:38 Completed D-DIMER [CHEM] Stat Lab 01/20/17 17:38 Completed MAGNESIUM [CHEM] Stat Lab 01/20/17 17:38 Completed PRO B-NATRIURETIC PEPTIDE Stat Lab 01/20/17 17:38 Completed PROTIME WITH INR [COAG] Stat Lab 01/20/17 17:38 Completed PTT [COAG] Stat Lab 01/20/17 17:38 Completed TROPONIN T Stat Lab 01/20/17 17:38 Completed Oxygen Device Routine Oth 01/20/17 22:44 Completed Telemetry [OM.EQ] Routine Oth 01/20/17 22:44 Active EKG [EKG] Stat Ther 01/20/17 17:46 Draft Transfer/Admit Order [TRANSFER] Routine Transfer 01/20/17 21:21 Completed Result Diagrams: 01/21/17 06:32 01/21/17 06:32 - XRAY 1 XRAY: Bilateral XRAY Study: Chest Impression: See EMR Report (Massive Right sided pleural effusion with atelectasis - Dr. Starks (Radiologist)) Departure - Departure Date of Disposition Decision: 01/20/17 Time of Disposition Decision: 22:00 DIAGNOSIS: Pleural effusion on right Dyspnea Qualifiers: Dyspnea type: unspecified Qualified Code(s): R06.00 - Dyspnea, unspecified Disposition: ADMITTED INPATIENT 09 Certified Medical Emergency: Emergent Condition: Stable - Critical Care Note This patient required my direct & personal management of CC.: No Attestation - Physician/ KASIA Attestation Patient care was provided by Advanced Practice Provider:: No The physician spent face to face time with patient:: Yes Advanced Practice Provider documentation review:: Supervising physician onsite and consulted in the evaluation and care of this patient. The physician did have a face to face encounter with the patient. This chart was documented by the indicated scribe, (Neel Foley Scribe) and accurately reflects the services I performed and decisions made by me, Jacques Lezama MD, as attested by the provider's signature.
--- NOTE | 2017-01-20 22:05 | Diag Imaging Result Doc PS360 ---
EXAM: TEMPORARY HISTORY: Elevated d-dimer and shortness of breath TECHNIQUE: CT of the chest with intravenous contrast and pulmonary arteriogram protocol with 3-D MIPS and dose reduction (clarity.) COMMENT: The current exam is compared without of 10/07/2016. The right pleural effusion which was present at the time the previous study has enlarged to considerably. There is more compressive atelectasis in the right lung. Possibility of underlying pneumonia cannot be excluded. There are no filling defects in the pulmonary arteries. The aorta is not distended or dissected in appearance. There are calcified nodes in the right paratracheal and subcarinal regions. There is splenomegaly, the spleen measuring in excess of 15.5 cm in AP dimension. This was also the case previously. There is ascites which is not as well-demonstrated as on the previous study. The regional skeleton is stable in appearance. IMPRESSION: Large right pleural effusion with compressive atelectasis and/or pneumonia. No evidence of pulmonary emboli. Electronically signed by Davin Starks 01/20/2017 8:21 PM
[2017-01-20] MEDS ORDERED: ZOFRAN IV PRN (23:12)
[2017-01-21] MEDS ORDERED: MORPHINE IV PRN (01:05)
--- NOTE | 2017-01-21 05:19 | EKG Report ---
Test Performed on : 01/20/2017 5:45:05 PM Test Reason : Chest Pain Blood Pressure : / mmHG Vent. Rate : 076 BPM Atrial Rate : 076 BPM P-R Int : 180 ms QRS Dur : 070 ms QT Int : 414 ms P-R-T Axes : 087 059 032 degrees QTc Int : 465 ms Normal sinus rhythm. Normal ECG When compared with ECG of 13-OCT-2012 19:24, No significant change was found Unconfirmed Result
[2017-01-21] MEDS: PRILOSEC PO SCH (06:32)
[2017-01-21] MEDS ORDERED: VITAMIN K SUBQ ONE (07:07)
[2017-01-21 07:09] LABS: EOS# 0.24 X1000 (0.0-0.7); EOS% 7.7 % (0.0-10.0); LYMPH# 0.98 X1000 (1.2-3.4); LYMPH% 31.6 % (20.5-51.1); MANUAL DIFF NEEDED? NO; MCH 39.1 PG (27-31); MCHC 34.4 g/dL (33-37); MCV 113.9 FL (81-99); MONO# 0.26 X1000 (0.11-0.59); MONO% 8.4 % (1.7-9.3); MPV 10.7 FL (7.4-10.4); NEUT% 52.3 % (42.2-75.2); PLT 82 X1000 (130-400); RBC 2.81 XMIL (4.2-5.4)
[2017-01-21 07:15] LABS: AGAP 9; ALBUMIN 2.9 g/dL (3.5-5.0); ALKALINE PHOSPHATASE 83 U/L (32-104); BUN 16 mg/dL (8-22); CALCIUM 8.6 mg/dL (8.8-10.2); CHLORIDE 107 mmol/L (98-107); COSMO 282; GOT 29 U/L (10-30); GPT 12 U/L (10-36); POTASSIUM 3.9 mmol/L (3.5-5.1); SODIUM 141 mmol/L (136-145); TCO2 25 mmol/L (25-35); TOTAL BILIRUBIN 1.32 mg/dL (0.20-1.00); TOTAL PROTEIN 5.8 g/dL (6.3-8.3)
--- NOTE | 2017-01-21 07:30 | PROGRESS NOTE ---
DATE: 01/21/2017 HISTORY: A 46-year-old, white, female patient admitted with shortness of breath, known case of advanced cirrhosis of the liver due to known alcoholic fatty liver. The patient also had some hemoptysis, cough. No high-grade fever. Patient did have some chills. No typical chest pain or palpitations. The patient had significant weight loss. The patient was evaluated in the emergency room. Her D-dimer was elevated. CTA of the pulmonary artery was negative for pulmonary embolism but it did show large right pleural effusion with compressive atelectasis. The patient denied any dysuria or hematuria. No vaginal discharge, spotting, bleeding. PAST MEDICAL HISTORY: Cirrhosis of the liver, gastritis and reflux disease. She has a history of abnormal Pap smear. The patient did go to barrel drainer for followup and told not to have any malignancy. The patient did not have regular Pap smear. Gastritis and reflux disease, esophageal varices. PHYSICAL EXAMINATION: Vital Signs: Her vital signs noted. Neck: Supple. No JVD. Lungs: Decreased air entry, right base. CVS: S1 and S2 heard. Abdomen: Soft, globular. Bowel sounds present. RAMP SUPERVISOR: Alert, awake. Able to move all 4 limbs. ASSESSMENT AND DISCUSSION: Patient's problems include: 1. Large right pleural effusion with underlying atelectasis. Patient is short of breath. The patient is on Aldactone, Lasix, and nadolol for portal hypertension. 2. Gastritis and reflux disease. 3. Cirrhosis of the liver. 4. I am going to get pulmonary consult with Dr. Ovalles for possible aspiration of pleural fluid to look for the etiology and also for therapeutic reasons. I am going to give her 1 dose of vitamin K. Continue rest of the treatment and close observation. Her morning lab data is pending. cc: Bhupendra Tompkins MD
[2017-01-21] MEDS ORDERED: PROTONIX PO SCH (09:00)
[2017-01-21] MEDS: CENTRUM SILVER PO SCH (09:44)
[2017-01-21] MEDS: CORGARD PO SCH (09:44)
[2017-01-21] MEDS: ICAR-C PO SCH ×2 (09:44→21:44)
[2017-01-21] MEDS: LASIX PO SCH (09:44)
[2017-01-21] MEDS: ALDACTONE PO SCH (09:44)
--- NOTE | 2017-01-21 09:53 | CONSULTATION ---
DATE OF CONSULTATION: 01/21/2017 CHIEF COMPLAINT: Shortness of breath. HISTORY OF PRESENT ILLNESS: This is a 46-year-old female with a past medical history of fatty liver cirrhosis, portal hypertension, gastritis, and obesity. She presented to the emergency room with complaints of a 2-day history of shortness of breath. She also complained of some right- sided pleuritic chest pain with deep inspiration. Her shortness of breath is worse with exertion. Diagnostics reveal a massive right-sided pleural effusion. She denies any fever , chills, abdominal pain, cough nausea vomiting or diarrhea. REVIEW OF SYSTEMS: A 10-point review of systems was conducted. Pertinent is noted the HPI, otherwise, noncontributory. PAST MEDICAL HISTORY: As mentioned in the HPI, otherwise, noncontributory. ALLERGIES: Oxycodone. FAMILY HISTORY: Noncontributory. SOCIAL HISTORY: The patient lives at home with her . Denies the use of tobacco or illicit drugs. ACTIVE MEDICATIONS: 1. Tylenol. 2. Lasix. 3. Icar-C. 4. Morphine. 5. Corgard. 6. Prilosec. 7. Zofran. 8. Aldactone. PHYSICAL EXAMINATION: Vital Signs: Temperature 97.8, heart rate 85, respiratory rate 18, blood pressure 124/79, oxygen saturation 96%. General: Awake, alert, lying in bed, in no acute distress noted. HEENT: Normocephalic and atraumatic. PERRL. Cardiovascular: S1-S2 present. Chest: Reduced entry. Diminished on the right. Abdomen soft, nontender, nondistended. Bowel sounds present in all quadrants. Extremities: Distal pulses palpable. Trace edema noted. Skin warm dry and intact. Neurologic: No focal deficits. LABS AND INVESTIGATIONS: WBC 5.01, RBCs 3.15, hemoglobin 12.2, hematocrit 35.8 , platelet count 95,000. Sodium 137, potassium 4, chloride 104, CO2 of 23, anion gap 10. BUN 16 , creatinine 0.9, glucose 87. Chest x-ray performed on 01/20/2017 shows a massive right pleural effusion with atelectasis. Pulmonary arteriogram shows large right pleural effusion with compressive atelectasis and/or pneumonia. No evidence of PE. ASSESSMENT AND PLAN: This is a 46-year-old, female, with past medical history mentioned in the HPI. She presented to the emergency room with a two-day history of shortness of breath. She has been admitted for evaluation of her right-sided pleural effusion, most likely, required thoracentesis. We will continue home medications as well as Prilosec for GI prophylaxis. Hold anticoagulants pending thoracentesis. Further recommendations pending diagnostic studies. Dr. Ovalles will take over. Thank for the courtesy of this consult. Dictated by TIFFANIE Marsh for Beverly Akhtar MD cc: TIFFANIE Marsh MD Bharat K. Vakharia, MD [facility] NETWORKNanci
--- NOTE | 2017-01-21 10:32 | HISTORY AND PHYSICAL ---
PRIMARY CARE PHYSICIAN: Dr. Tompkins. DATE AND TIME: 01/20/17 at 2100. CHIEF COMPLAINT: Shortness of breath. HISTORY OF PRESENT ILLNESS: Ms. Moreau is a 46-year-old, female who presented to the ER earlier this evening complaining of shortness of breath. She reports that over the past 2 days, she has had worsening shortness of breath. She also complains of some right chest and side pain which worsens with deep inspiration. This chest and side pain was reproducible with palpation. It does appear to be pleuritic in nature. She also does report a dry cough as well, though denied any fever, body aches, or chills. She was recently admitted to the hospital in September of 2016 for liver cirrhosis secondary to nonalcoholic steatohepatitis complicated with portal hypertension. She was also noted to have a large amount of ascites and did undergo a paracentesis. There was a suspicion that the patient could have a spontaneous bacterial peritonitis and she was treated with Levaquin. The patient, at this time, denies any abdominal pain or worsening abdominal swelling or distention. She also denies any headache, dizziness, lightheadedness, nausea, vomiting, diarrhea, or constipation. The patient reports that she does frequently have some loose stools secondary to recent lactulose use. She denies any hematochezia or melena. She denies any dysuria or urinary frequency. She also denies any increased swelling in the extremities. Upon evaluation in the ER, the patient was found to have a large right pleural effusion with atelectasis noted on her chest x-ray. She also had an elevated D-dimer. Secondary to this, a CTA of the chest was performed which did show a large right pleural effusion with compressive atelectasis and/or pneumonia, though no evidence of pulmonary embolism. Her EKG showed a normal sinus rhythm at a rate of 76. Her cardiac enzymes were negative. At this time , we will admit her for further treatment and evaluation. REVIEW OF SYSTEMS: A 12 point review of systems was conducted with the patient. All were negative except for pertinent positives as mentioned above in the HPI. PAST MEDICAL HISTORY: 1. Fatty liver. 2. Cirrhosis of the liver. 3. Portal hypertension. 4. Gastritis. 5. Obesity. 6. History of esophageal varices. PAST SURGICAL HISTORY: 1. Appendectomy. 2. Cholecystectomy. 3. EGD and colonoscopy in July of 1016. 4. Paracentesis in September of 2016. SOCIAL HISTORY: The patient is and currently lives with her . She denies any present or past tobacco, alcohol, or illicit drug use. FAMILY HISTORY: Positive for her father passing away secondary to pancreatic cancer. He also had a history of abdominal and cerebral aneurysm. Her mother is currently still living at this time, though does have severe arthritis. ALLERGIES: The patient reports allergies to oxycodone. HOME MEDICATIONS: 1. Spironolactone 50 mg p.o. daily. 2. Protonix 40 mg p.o. daily. 3. Prilosec 20 mg p.o. daily. 4. Nadolol 40 mg p.o. daily. 5. Centrum Silver multivitamin one p.o. daily. 6. Icar-C one p.o. b.i.d. 7. Lasix 20 mg p.o. daily. DIAGNOSTIC DATA/LABORATORY RESULTS: White blood cells count 5.01, hemoglobin 12.2, hematocrit 35.8, platelet count is 95,000. PT 12.9, INR 1.21, and PTT is 30.8. D-dimer is 1.86. Sodium 137, potassium 4, chloride 104, bicarbonate 23, BUN 16, creatinine 0.9, glucose 87, calcium 8.8, magnesium 1.7. Total bilirubin is 1.39, AST 33, ALT 15, alkaline phosphatase 101, ammonia level is 38. CK 75, troponin is less than 0.01. ProBNP was 258. A CTA of the chest showed a large right pleural effusion with compressive atelectasis and/or pneumonia. There was no evidence of pulmonary emboli. There was also noted to be some splenomegaly as well as some ascites noted as well. EKG showed normal sinus rhythm at a rate of 76 with a QTc of 465. PHYSICAL EXAMINATION: VITAL SIGNS: Temperature is 97.9, heart rate 86, respirations 20, blood pressure is 110/68, oxygen saturation is 98% on room air. GENERAL: Ms. Moreau is a pleasant, 46-year-old, female who is resting on the ER stretcher. She is in no acute distress. She was awake, alert, and able to answer all questions appropriately. HEENT: Head is atraumatic, normocephalic. Pupils are equal, round, reactive to light, were 3 mm bilaterally and brisk. Sclerae are white. No lesions noted. Subconjunctivae are pink. Oral mucosa is moist. Oropharynx is clear. NECK: Supple. Trachea midline. No JVD noted. CARDIOVASCULAR: Patient has a normal S1 and S2. No murmurs, gallops, or rubs appreciated, with a regular rate and rhythm. PULMONARY: Patient has symmetrical chest expansion bilaterally. Lung sounds were clear in the left lung griffin, though in the right lung field, she did have diminished lung sounds noted in the right lung base. ABDOMEN: Soft, nontender, nondistended. Bowel sounds were present in all 4 quadrants. The patient did report some pain upon palpation to her right side and in the right rib area. EXTREMITIES: No cyanosis, clubbing or edema noted. Pulse, motor, and sensory are intact in the lower extremities as well. Pedal pulses were 2+ bilaterally. No swelling, edema , erythema, or pain noted to bilateral lower extremities. Patient has negative Homans's sign noted to bilateral lower extremities. INTEGUMENTARY: The patient's skin is pink, warm, dry, and intact. No lesions or sores noted. NEUROLOGIC: The patient is alert and oriented to person, place, time, and situation. Cranial nerves 2-12 are grossly intact. ASSESSMENT AND PLAN: 1. Large right pleural effusion. The patient at this time is not experiencing any acute respiratory distress. She only becomes slightly dyspneic with exertion. She is maintaining adequate oxygen saturations. We have placed a consult with pulmonology for further evaluation and possible need for thoracentesis. We will await their evaluation and further recommendations. We will continue to monitor her respiratory status closely. We have also ordered an echocardiogram as well for further evaluation and we will continue to follow. 2. Cirrhosis of the liver with portal hypertension. We will continue her Aldactone, nadolol, and Lasix. 3. Gastritis. We will continue her Prilosec. 4. Macrocytic anemia. This appears to be stable at this time. We will continue to follow. 5. She will be placed on the medical floor with telemetry. She will have vital signs every 4 hours. We will do strict intake and output. She will be nothing per oral at this time until evaluated by pulmonology. We will continue the series of cardiac enzymes. Deep venous thrombosis prophylaxis was provided with sequential compression devices at this time. Further orders and recommendations pending hospital course, diagnostic studies, and physician evaluation. Dictated by TIFFANIE Chang for Isabel Guzman MD cc: MD Bhupendra Avelar MD MTDD
--- NOTE | 2017-01-21 12:44 | Diag Imaging Result Doc PS360 ---
CHEST-2 VIEWS - 01/21/2017 INDICATION: TO FOLLOW THORACENTESIS TECHNIQUE: COMPARISON: 01/20/2017 FINDINGS: There has been significant improvement in the right basilar pleural effusion. No pneumothorax. No significant infiltrates. Heart size is normal. IMPRESSION: Significant improvement in the right pleural effusion. Electronically signed by Damien Pollock 01/21/2017 12:42 PM
[2017-01-21 12:59] LABS: TOTAL PROT BODY FLUID 2.5 g/dL
[2017-01-21 13:17] LABS: SPECIMEN PLEURAL FLUID
[2017-01-21 13:18] LABS: DIFF NEEDED? YES; WBC BF 801 /cumm
[2017-01-21 13:22] LABS: MONOS 80 %; POLYS 20 %
--- NOTE | 2017-01-21 13:42 | OPERATIVE NOTE ---
PROCEDURE DATE: 01/21/2017 PROCEDURE PERFORMED: Thoracentesis from the right hemithorax. CLINICAL INDICATIONS: A 46-year-old white female with cirrhosis, large right-sided pleural effusion, pleuritic chest pain, and dyspnea. PROCEDURE: After informed consent was obtained in the ultrasound area, the right hemithorax was prepped and draped in the usual sterile fashion after a location of pleural fluid was identified by the child nutrition manager. Local anesthesia was achieved with 1% lidocaine. Pleural fluid was identified with the anesthetic needle. A plastic catheter was introduced into the right hemithorax with a stainless steel trocar. When pleural fluid was identified, the catheter was advanced and the trocar was retracted. 2000 mL of bucky, minimally cloudy fluid, was aspirated from the right hemithorax without difficulty. Pleural fluid continued to flow at the end of the procedure put the procedure was terminated due to escalating reports of pain by the patient. No air was entrained during the procedure. Pleural fluid will be sent for white blood count, chemistries, cultures, and cytology. Postprocedure chest x-ray has been ordered and is in progress. cc: MD Bhupendra Garcia MD
--- NOTE | 2017-01-21 13:44 | CONSULTATION ---
DATE OF CONSULTATION: 01/21/2017 REQUESTING PHYSICIAN: Dr. Tompkins. REASON FOR CONSULTATION: Massive pleural effusion and shortness of breath. HISTORY OF PRESENT ILLNESS: Ms. Moreau is a 46-year-old white female, never smoker, who presented to me with a history of cirrhosis, who presented to the emergency room with progressive shortness of breath. Patient previously has undergone paracentesis for ascites. CT pulmonary angiogram was performed which revealed a large right-sided pleural effusion with compressive atelectasis. Possibility of pneumonia could not be excluded. Pulmonary consultation was requested. PAST MEDICAL HISTORY/PROBLEM LIST: 1. Cirrhosis of the liver due to nonalcoholic steatohepatitis. 2. Portal hypertension with splenomegaly and esophageal varices. 3. History of obesity, although she currently is overweight, but not obese. 4. Status post appendectomy. 5. Status post cholecystectomy. 6. Prior paracentesis as per above. SOCIAL HISTORY: She is a never smoker. No alcohol use. FAMILY HISTORY: Positive for pancreatic cancer and cerebral aneurysms. REVIEW OF SYSTEMS: Notable for shortness of breath, pain, pleuritic pain with inspiration, dry cough. She denies fevers or chills. She does report continued lower extremity edema. PHYSICAL EXAMINATION: General: Reveals a chronically ill-appearing, white female with mild dyspnea and not in overt distress. She does have a component of fetor hepaticus present. Vital Signs: BP 133/54, heart rate 84, respiration rate 16, oxygen saturation 95% on 2 L per nasal cannula. HEENT: Pupils are equal and reactive. Oropharynx is clear. Minimal scleral icterus is noted. Oropharynx is without lesions. Neck: Supple. Chest: Reveals markedly diminished breath sounds at the right base. Cardiac Exam: Regular rate. Normal S1, normal S2. Abdomen: Soft. No definite fluid wave appreciated. Extremities: Reveal 1+ to 2+ pitting edema. LABORATORIES: White blood count 3.10, hemoglobin 11.0, platelet count 82,000. PT 12.9, INR 1.21. IMPRESSION: A 46-year-old with cirrhosis and chronic liver failure, dyspnea on minimal exertion, large right-sided pleural effusion, pleuritic chest pain, and mild coagulopathy with a PT of 12.9 and mild thrombocytopenia with worsening effusion, dyspnea, and pleuritic pain. I believe it would be reasonable and prudent to perform a thoracentesis. Risk and benefits of thoracentesis were discussed with the patient. PLAN: 1. Ultrasound-guided thoracentesis as outlined above. 2. Additional recommendations pending hospital course. cc: MD Bhupendra Garcia MD
--- NOTE | 2017-01-21 15:47 | ECHO REPORT ---
ORDER DATE: 01/21/2017 INDICATION: Right pleural effusion. FINDINGS: 1. Right atrium is normal in size. 2. Mild tricuspid regurgitation. RV systolic pressure of 39. 3. Normal RV size and systolic function. 4. No significant pulmonic insufficiency. 5. Normal left atrial size at 3.5. 6. No mitral valve prolapse. Trace mitral regurgitation. 7. Normal LV size, end-diastolic dimension of 4.9. Normal wall thicknesses with a posterior and interventricular septal thickness of 0.7 and 0.8 cm respectively. Normal LV systolic function. Estimated EF 60%-65% with normal wall motion. 8. Aortic valve opens well. It is trileaflet. No evidence of stenosis or insufficiency. 9. Aorta appears normal in visualized segments. 10. No pericardial effusion seen. Evidence for pleural effusion is noted. cc: MD Bhupendra Giang MD
[2017-01-21] MEDS: TYLENOL PO PRN (22:22)
[2017-01-22] MEDS: PRILOSEC PO SCH (06:57)
--- NOTE | 2017-01-22 06:58 | PROGRESS NOTE ---
DATE: 01/22/2017 SUBJECTIVE: Ms Moreau is feeling better. Appreciate Dr. Ovalles's help managing this patient. Her shortness of breath improved. Pleuritic pain also improved. No unusual cough, expectoration. No high-grade fever or chills. Denied abdominal pain. OBJECTIVE: Vital Signs: Her vital signs noted. Neck: Supple. No JVD. Lungs: Bilateral good air entry present. Decreased air entry right base. CVS: S1 and S2 heard. Abdomen: Soft, globular. Bowel sounds present. CULLED FRUIT PACKER: Alert, awake. Able to move all 4 limbs. CONSIDERATION: 1. The patient's problem includes large pleural effusion status post pleural tap, about 2 L of fluid aspirated. 2. Patient does have nonalcoholic steatohepatitis. 3. Cirrhosis of the liver complicated by esophageal varices and gastric varices. 4. Gastritis and reflux disease. PLAN: Encourage patient to limit her fluid intake. Will ambulate the patient today. Discussed with Dr. Ovalles about discharge planning. If it is okay, we will plan discharging patient home soon. cc: Bhupendra Tompkins MD
[2017-01-22] MEDS: LASIX PO SCH (09:16)
[2017-01-22] MEDS: ALDACTONE PO SCH (09:16)
[2017-01-22] MEDS: ICAR-C PO SCH ×2 (09:16→21:39)
[2017-01-22] MEDS: CENTRUM SILVER PO SCH (09:16)
[2017-01-22] MEDS: CORGARD PO SCH (09:16)
[2017-01-22] MEDS: TYLENOL PO PRN (16:26)
[2017-01-23] MEDS: PRILOSEC PO SCH (06:43)
[2017-01-23 08:24] VITALS: BP 98/34
[2017-01-23] MEDS: ICAR-C PO SCH (08:59)
[2017-01-23] MEDS: LASIX PO SCH (08:59)
[2017-01-23] MEDS: CORGARD PO SCH (08:59)
[2017-01-23] MEDS: CENTRUM SILVER PO SCH (08:59)
[2017-01-23] MEDS: ALDACTONE PO SCH (08:59)
--- NOTE | 2017-01-23 10:53 | DISCHARGE SUMMARY ---
ADMISSION DATE: 01/20/2017 DISCHARGE DATE: 01/23/2017 FINAL DISCHARGE DIAGNOSES: 1. Right pleural effusion. 2. Chronic liver failure. 3. Cirrhosis of the liver due to nonalcoholic steatohepatitis. 4. Portal hypertension with esophageal and gastric varices and splenomegaly. 5. Gastritis and reflux disease. Ms. Moreau is a 46-year-old white female patient, known case of nonalcoholic hepatosteatosis with cirrhosis of the liver, with portal hypertension, presented to the emergency room with progressive shortness of breath, chest congestion, cough, and questionable hemoptysis. The patient evaluated in the ER. CT scan in the ER to look for pulmonary embolism was negative, but it did show large right pleural effusion. The patient was symptomatic and admitted. Pulmonary consult obtained with Dr. Ovalles. The patient had ultrasound-guided thoracentesis. About 2 litter of fluid were drained. Patient tolerated procedure well. She started feeling much better. Post procedural x- ray showed significant improvement. The patient is ambulating well. I had lengthy discussion with the patient about fluid restriction, take medication regularly. I am planning to discharge patient home. PHYSICAL EXAMINATION: Vital Signs: Her vital signs noted. Patient is afebrile. Lungs: Bilateral good air entry present. Decreased air entry right base. Cardiovascular: S1 and S2 heard. Abdomen: Soft, nontender. Bowel sounds present. SALES ROUTE DRIVER HELPER: Alert, awake, able to move all 4 limbs. No acute deep venous thrombosis clinically. LAB DATA: Last hemoglobin 11, hematocrit 32, platelet count 82,000. WBC count 3.10. Electrolytes were fairly benign. Pleural fluid; pH was 7.5, WBC 801. AFB smears and fungal smear were negative. Culture was no growth and gram stain there was 1+ WBCs but no bacteria. Overall, the patient received maximum benefit of hospitalization. I am going to discharge patient home. She will continue her home medicine. Followup with me in a week. Fluid restriction. Patient is being followed- up by credit administrator at [facility]. Advised to continue. Avoid hepatotoxic medications. In case of more distress, call us back or go to the emergency room. cc: Bhupendra Tompkins MD
== END 2017-01-23 09:38 | disposition home or self-care (01) ==
LOC: ED 17:23 → 3N 22:08 → SUATTDRO 22:08
PROVIDERS: ADMIT Internal Medicine; ATTEND Internal Medicine

== ENCOUNTER 2017-02-05 13:22 | Inpatient (IN) ==
[2017-02-05] MEDS: DUONEB (A & A) INH SCH ×2 (16:16→21:19)
[2017-02-05 16:32] LABS: URINE MICRO REVIEW NEEDED? NO; URINE SOURCE CLEAN CATCH
[2017-02-05 16:37] LABS: BILIRUBIN URINE NEGATIVE (NEGATIVE); BLOOD URINE NEGATIVE (NEGATIVE); COLOR YELLOW; GLUCOSE URINE NEGATIVE (NEGATIVE); LEUKOCYTES URINE NEGATIVE (NEGATIVE); NITRITE URINE NEGATIVE (NEGATIVE); PROTEIN URINE TRACE mg/dL (NEGATIVE); SP GRAVITY URINE 1.025; TURBIDITY URINE CLEAR (CLEAR); UR EPITHELIAL CELLS <10 /HPF (<10); URINE BACTERIA 1+ /HPF; URINE RBC <10 /HPF (<10); URINE WBC <10 /HPF (<10); UROBILINOGEN URINE 3 mg/dL (NORMAL)
[2017-02-05] MEDS: ROCEPHIN 1 GM in NS 50 ML IV SCH (17:07)
[2017-02-05] MEDS: SODIUM CHLORIDE 0.9% INJ SCH (17:07)
[2017-02-05] MEDS ORDERED: NS 500 ML ONE (17:07)
[2017-02-05] MEDS: PROTONIX IV SCH (17:07)
[2017-02-05 17:08] LABS: BASO% 0.2 % (0.0-0.8); EOS# 0.65 X1000 (0.0-0.7); EOS% 12.5 % (0.0-10.0); HEMOGLOBIN 13.1 g/dL (12.0-16.0); LYMPH# 1.25 X1000 (1.2-3.4); LYMPH% 23.9 % (20.5-51.1); MANUAL DIFF NEEDED? YES; MCHC 34.5 g/dL (33-37); MCV 113.1 FL (81-99); MONO# 0.49 X1000 (0.11-0.59); MONO% 9.4 % (1.7-9.3); MPV 10.6 FL (7.4-10.4); PLT 98 X1000 (130-400); RBC 3.36 XMIL (4.2-5.4)
[2017-02-05 17:14] LABS: INR 1.17; PROTIME 12.4 Seconds (9.2-11.7); PTT 30.6 Seconds (22.0-36.0)
[2017-02-05 17:18] LABS: ALLEN TEST NO; BE 2.1 mmoll (-3.0-3.0); BLOOD TYPE ARTERIAL; DRAW SITE R BRACHIAL; METHB 0.3 % (0.0-1.5); O2(CT) 15.2 mL/dL (15.0-23.0); PCO2(98.6) 33 mmHg (35-45); PO2(98.6) 81 mmHg (60-100); SAMPLE BLOOD; SAO2 98.3 % (95.0-100.0); THB 11.2 g/dL (11.5-17.4); pH(98.6) 7.49 (7.35-7.45)
[2017-02-05 17:19] LABS: MODALITY ROOM AIR
[2017-02-05 17:20] LABS: CALCIUM 8.2 mg/dL (8.8-10.2); MAGNESIUM 1.9 mg/dL (1.5-2.7); POTASSIUM 4.2 mmol/L (3.5-5.1); TOTAL BILIRUBIN 2.31 mg/dL (0.20-1.00); TOTAL PROTEIN 6.6 g/dL (6.3-8.3)
[2017-02-05 17:38] LABS: EOS 7 % (1-10); LYMPHS 33 % (21-51); MONO 1 % (1-9)
[2017-02-05] MEDS: LEVAQUIN 500 MG/D5W 500 MG/100 ML IVPB IV SCH (18:46)
[2017-02-05] MEDS: ICAR-C PO SCH (21:08)
[2017-02-06] MEDS: DUONEB (A & A) INH SCH ×4 (03:20→21:14)
[2017-02-06 06:58] LABS: BASO% 0.2 % (0.0-0.8); EOS# 0.52 X1000 (0.0-0.7); EOS% 12.9 % (0.0-10.0); HEMATOCRIT 32.6 % (37.0-47.0); LYMPH# 1.26 X1000 (1.2-3.4); LYMPH% 31.2 % (20.5-51.1); MANUAL DIFF NEEDED? NO; MCH 38.6 PG (27-31); MCHC 33.7 g/dL (33-37); MCV 114.4 FL (81-99); MONO# 0.42 X1000 (0.11-0.59); MONO% 10.4 % (1.7-9.3); MPV 10.9 FL (7.4-10.4); NEUT% 45.3 % (42.2-75.2); PLT 90 X1000 (130-400); RBC 2.85 XMIL (4.2-5.4)
[2017-02-06 07:11] LABS: ALBUMIN 2.3 g/dL (3.5-5.0); CALCIUM 8.4 mg/dL (8.8-10.2); POTASSIUM 4.7 mmol/L (3.5-5.1); TOTAL BILIRUBIN 1.4 mg/dL (0.20-1.00); TOTAL PROTEIN 5.5 g/dL (6.3-8.3)
[2017-02-06] MEDS ORDERED: ALDACTONE PO SCH (09:00)
[2017-02-06] MEDS ORDERED: CORGARD PO SCH (09:00)
[2017-02-06] MEDS ORDERED: LASIX PO SCH (09:00)
[2017-02-06] MEDS: ICAR-C PO SCH ×2 (09:17→23:46)
[2017-02-06] MEDS: CENTRUM SILVER PO SCH (09:17)
[2017-02-06] MEDS: CORGARD PO SCH ×2 (09:20→16:53)
[2017-02-06] MEDS: ALDACTONE PO SCH ×2 (09:20→18:03)
[2017-02-06] MEDS: ULTRAM PO SCH (16:56)
[2017-02-06] MEDS: PROTONIX IV SCH (16:57)
[2017-02-06] MEDS: SODIUM CHLORIDE 0.9% INJ SCH (16:57)
[2017-02-06] MEDS: LEVAQUIN 500 MG/D5W 500 MG/100 ML IVPB IV SCH ×2 (18:00→19:17)
[2017-02-06] MEDS: ROCEPHIN 1 GM in NS 50 ML IV SCH (18:01)
[2017-02-07] MEDS: ULTRAM PO SCH ×3 (00:29→16:32)
[2017-02-07] MEDS: DUONEB (A & A) INH SCH ×3 (03:35→16:42)
[2017-02-07 08:12] LABS: BASO% 0.2 % (0.0-0.8); EOS# 0.59 X1000 (0.0-0.7); EOS% 11.8 % (0.0-10.0); HEMATOCRIT 34.5 % (37.0-47.0); HEMOGLOBIN 11.7 g/dL (12.0-16.0); LYMPH% 26.1 % (20.5-51.1); MANUAL DIFF NEEDED? YES; MCH 38.5 PG (27-31); MCHC 33.9 g/dL (33-37); MCV 113.5 FL (81-99); MONO# 0.52 X1000 (0.11-0.59); MONO% 10.4 % (1.7-9.3); MPV 10.9 FL (7.4-10.4); NEUT% 51.5 % (42.2-75.2); PLT 90 X1000 (130-400); RBC 3.04 XMIL (4.2-5.4)
[2017-02-07 08:19] LABS: ALBUMIN 2.6 g/dL (3.5-5.0); CALCIUM 8.4 mg/dL (8.8-10.2); POTASSIUM 4.2 mmol/L (3.5-5.1); TOTAL BILIRUBIN 1.27 mg/dL (0.20-1.00); TOTAL PROTEIN 6.3 g/dL (6.3-8.3)
[2017-02-07] MEDS: ICAR-C PO SCH (08:43)
[2017-02-07] MEDS: CENTRUM SILVER PO SCH (08:43)
[2017-02-07] MEDS: CORGARD PO SCH (08:44)
[2017-02-07] MEDS ORDERED: ALDACTONE PO SCH (09:00)
[2017-02-07 09:02] LABS: BANDS 4 % (0-1); LYMPHS 28 % (21-51)
[2017-02-07] MEDS: ROCEPHIN 1 GM in NS 50 ML IV SCH (15:38)
[2017-02-07] MEDS: PROTONIX IV SCH (15:38)
[2017-02-07] MEDS: SODIUM CHLORIDE 0.9% INJ SCH (15:38)
[2017-02-07 16:11] VITALS: BP 91/48
== END 2017-02-07 17:33 | disposition home or self-care (01) ==
LOC: DIRADM 13:22 → 4N 15:09
PROVIDERS: ADMIT Internal Medicine; ATTEND Internal Medicine

== ENCOUNTER 2017-02-15 13:40 | Inpatient (IN) ==
[2017-02-15 14:35] LABS: EOS# 0.55 X1000 (0.0-0.7); EOS% 13.6 % (0.0-10.0); HEMATOCRIT 31.8 % (37.0-47.0); LYMPH# 1.23 X1000 (1.2-3.4); LYMPH% 30.4 % (20.5-51.1); MANUAL DIFF NEEDED? NO; MCH 39.1 PG (27-31); MCHC 34.6 g/dL (33-37); MCV 113.2 FL (81-99); MONO# 0.45 X1000 (0.11-0.59); MONO% 11.1 % (1.7-9.3); MPV 11.8 FL (7.4-10.4); NEUT% 44.9 % (42.2-75.2); PLT 92 X1000 (130-400); RBC 2.81 XMIL (4.2-5.4)
[2017-02-15] MEDS ORDERED: NS 1,000 ML IV ONE (14:35)
[2017-02-15] MEDS ORDERED: ZOFRAN IV ONE (14:36)
[2017-02-15] MEDS ORDERED: PROTONIX IV ONE (14:38)
[2017-02-15] MEDS ORDERED: SODIUM CHLORIDE 0.9% INJ ONE (14:38)
[2017-02-15 14:47] LABS: ALBUMIN 2.5 g/dL (3.5-5.0); CALCIUM 8.2 mg/dL (8.8-10.2); TOTAL BILIRUBIN 1.06 mg/dL (0.20-1.00); TOTAL PROTEIN 5.9 g/dL (6.3-8.3)
--- NOTE | 2017-02-15 15:26 | Diag Imaging Result Doc PS360 ---
EXAM: CHEST-2 VIEWS HISTORY: productive cough TECHNIQUE: Two views COMPARISON: 02/11/2017 FINDINGS: There continues to be a small right-sided pleural effusion. There is atelectasis to the right lower lobe and may be an underlying infiltrate as well. The appearance is similar to that of the prior study. The left lung remains clear. The cardiomegaly. The vessels are not distended. IMPRESSION: Stable chest. Electronically signed by Anshu Mac 02/15/2017 3:23 PM
--- NOTE | 2017-02-15 16:34 | Diag Imaging Result Doc PS360 ---
EXAM: CT ABD/PELVIS W/ IV CONT ONLY HISTORY: diffused pain abdomen TECHNIQUE: CT abdomen and pelvis with intravenous contrast. Dose reduction protocol. COMPARISON: 10/07/2016 FINDINGS: There is a moderate-sized right-sided pleural effusion measuring 6.0 cm posteriorly and inferiorly in the midline. This is much larger than it measured on the prior exam. The gallbladder has been removed. The spleen remains enlarged measuring 8.8 x 16.8 x 15.9 cm. There is a nodular contour to the liver. Normal pancreas and adrenal glands. The right kidney is atrophic. Normal left kidney. No hydronephrosis. There is a small amount of abdominal and pelvic ascites. No bowel obstruction. Normal aorta. No abscess. Urinary bladder is moderately distended. Normal uterus. No pelvic mass. There are prominent dilated varices in the upper and left abdomen. The appendix has been removed. IMPRESSION: 1.Moderate-sized right-sided pleural effusion which is increased in size since the prior exam 2.Cirrhosis with splenomegaly and portal hypertension. Decreased ascites compared to the prior exam. 3.Atrophic right kidney 4.Cholecystectomy and appendectomy 5.Electronically signed by Anshu Mac 02/15/2017 4:32 PM
--- NOTE | 2017-02-15 18:50 | PROVIDER DOCUMENTATION ---
This chart was entered by Khloe Peterson Scribe, acting as scribe for Wood Meza DO. HPI-Abdominal Pain/GI Problem - General Chief Complaint: Abdominal Pain Stated Complaint: V/CONGESTION Time Seen by Provider: 02/15/17 14:02 Source: patient Allergies/Adverse Reactions: Patient Allergies Allergy/AdvReac Type Severity Reaction Status Date / Time oxycodone HCl * Allergy Intermediate SWELLING Verified 02/15/17 18:32 [From OxyContin] Home Medications: Home Medication List Medication Instructions Recorded Confirmed Last Taken Type Pantoprazole [Protonix] 40 mg PO DAILY 07/31/16 02/15/17 02/15/17 History Multivitamins/Minerals [Centrum 1 each PO DAILY #0 tablet 08/01/16 02/15/17 Rx Silver] Iron Carbonyl/Ascorbic Acid 1 each PO BID tablet 10/11/16 02/15/17 02/15/17 Rx [Icar-C] Nadolol [Corgard] 20 mg PO DAILY tablet 02/07/17 02/15/17 02/15/17 Rx Spironolactone [Aldactone] 25 mg PO DAILY tablet 02/07/17 02/15/17 02/15/17 Rx Tramadol [Ultram] 50 mg PO Q8H tablet 02/07/17 02/15/17 02/15/17 Rx - History of Present Illness-ABD Nature of Presenting Problems: Pt is a 46 year old female who came to the ED with a cc of abdominal pain and vomiting since 6am this morning. Pt reports she has vomited 4x. PT reports the pain is in her RLQ. Denies fever, chills, and diarrhea. Abdominal Pain Onset Location: reports: RLQ Pain Radiation: reports: no radiation Quality of Pain: reports: sharp Severity in ED: reports: mild Onset/Duration: reports: this morning Timing: reports: still present Activities at Onset: reports: none Modifying Factors: improves with: nothing Associated Symptoms: reports: nausea, vomiting Last BM: unsure Dark Stools Present?: reports: none noticed Rectal Bleeding: reports: none Rectal Pain: reports: none Emesis Description: reports: none Bruising or Bleeding Gums?: No Similar Symptoms Previously?: No Recently seen or treated by another doctor?: No Review of Systems - Adult - REVIEW OF SYSTEMS - ADULT Constitutional: denies: chills, fever Eyes: reports: no symptoms reported Ears, Nose, Mouth & Throat: reports: no symptoms reported Cardiovascular: denies: chest pain, irregular heart rate Respiratory: denies: cough, shortness of breath Gastrointestinal: reports: abdominal pain, nausea, vomiting. denies: diarrhea, difficulty swallowing Genitourinary: reports: no symptoms reported Musculoskeletal: reports: no symptoms reported Integumentary: reports: no symptoms reported Neurological: reports: no symptoms reported Psychiatric: reports: no symptoms reported Endocrine: reports: no symptoms reported Hematologic/Lymphatic: reports: no symptoms reported Allergic/Immunologic: reports: no symptoms reported All Other Systems: Reviewed and Negative Past History - Adult - PAST MEDICAL HISTORY-ADULT Review of Records: reports: Old Records Reviewed, Nursing Assessment Review Major Childhood Illnesses: reports: denies history Cardiovascular: reports: HTN Respiratory: reports: denies history Gastrointestinal: reports: hepatitis (C), other (cirrhosis) Obstetrical/Gynecological: reports: denies history Genitourinary: reports: denies history Musculoskeletal: reports: denies history Neurological: reports: denies history Endocrine/Immune: reports: anemia Other Conditions: reports: denies history - PRIOR SURGERIES/PROCEDURES Surgical/Procedure History: reports: appendectomy, cholecystectomy - IMMUNIZATION STATUS Childhood Immunizations: See Nurse Assessment Flu Vaccine: See Nurse Assessment - FAMILY HISTORY Family History: reviewed, not pertinent Physical Exam-General - PHYSICAL EXAM-ADULT Initial Vital Signs Reviewed: Yes - CONSTITUTIONAL General Appearance: appears well, alert, no apparent distress - EYES Eyes: PERRL/EOMI, pink conjunctivae - HEAD, EARS, NOSE, MOUTH & THROAT HENMT: normocephalic/atraumatic, moist mucous membranes - NECK Neck: non-tender, full range of motion - RESPIRATORY Respiratory: chest non-tender, lungs clear, normal breath sounds - CARDIOVASCULAR Cardiovascular: normal peripheral pulses, regular rate, rhythm - GASTROINTESTINAL (ABDOMEN) Abdominal Exam: soft, tenderness (Lower abdominal) - MUSCULOSKELETAL Back Exam: normal inspection, no CVA tenderness Extremity: normal range of motion, non-tender - SKIN Integumentary: normal color, normal turgor - NEUROLOGIC Neurologic: grossly normal - PSYCHIATRIC Psych/Mental Status: normal mood/affect, normal thought content, normal thought process, oriented x 3 Progress - PLAN OF CARE/RESULTS Progress/Plan/Lab Results: Vital Signs - 8 hr 02/15/17 13:43 Temperature 98.4 F Pulse Rate 74 Respiratory Rate 18 Blood Pressure 102/59 O2 Sat by Pulse Oximetry 100 Laboratory Results - last 24 hr 02/15/17 02/15/17 14:22 14:22 WBC 4.05 L RBC 2.81 L Hgb 11.0 L Hct 31.8 L MCV 113.2 H MCH 39.1 H MCHC 34.6 RDW Std Deviation 13.4 Plt Count 92 L MPV 11.8 H Immature Gran % (Auto) 0.0 Neut % (Auto) 44.9 Lymph % (Auto) 30.4 [place] % (Auto) 11.1 H Eos % (Auto) 13.6 H Baso % (Auto) 0.0 Immature Gran # (Auto) 0.00 Neut # (Auto) 1.82 Lymph # (Auto) 1.23 [place] # (Auto) 0.45 Eos # (Auto) 0.55 Baso # (Auto) 0.00 Sodium 138 Potassium 4.0 Chloride 107 Carbon Dioxide 24 L Anion Gap 7 BUN 17 Creatinine 1.0 H Estimated GFR/1.73 m2 59 BUN/Creatinine Ratio 17 Glucose 93 Calculated Osmolality 277 Calcium 8.2 L Total Bilirubin 1.06 H AST 35 H ALT 14 Alkaline Phosphatase 81 Total Protein 5.9 L Albumin 2.5 L Globulin 3.4 Albumin/Globulin Ratio 0.7 Amylase 46 Lipase 36 Orders Category Date Time Status Saline Loc DIRECTED Care 02/15/17 14:23 Active NPO Diet 02/15/17 14:23 Active CHEST-2 VIEWS [RAD] Stat Exams 02/15/17 14:[address] ABD/PELVIS W/ IV CONT ONLY [CT] Stat Exams 02/15/17 14:58 Ordered AMYLASE [CHEM] Stat Lab 02/15/17 14:22 Completed CBC WITH ELECTRONIC DIFF [HEME] Stat Lab 02/15/17 14:22 Completed COMPREHENSIVE METABOLIC PANEL [CHEM] Stat Lab 02/15/17 14:22 Completed LIPASE [CHEM] Stat Lab 02/15/17 14:22 Completed 0.9% Sodium Chloride Inj [Ns] 1,000 ml Med 02/15/17 14:35 Active IV 999 mls/hr Ondansetron [Zofran] Med 02/15/17 14:36 Discontinued 4 mg IV NOW ONE Pantoprazole [Protonix] Med 02/15/17 14:38 Discontinued 40 mg IV NOW ONE Sodium Chloride 0.9% Med 02/15/17 14:38 Discontinued 10 ml INJ NOW ONE EKG [EKG] Stat Ther 02/15/17 14:34 Ordered Result Diagrams: 02/15/17 14:22 02/15/17 14:22 - REASSESSMENT Reassessment #1 Time Reassessed: 18:45 (Spoke with and he has accepted the admission. Advised to start the medication as I have ordered here.) Departure - Departure Date of Disposition Decision: 02/15/17 Time of Disposition Decision: 18:47 DIAGNOSIS: Pleural effusion, Cirrhosis Disposition: ADMITTED INPATIENT 09 Certified Medical Emergency: Emergent Condition: Critical Referrals and Follow-Ups: Bhupendra Tompkins MD [Primary Care Provider] - - Critical Care Note This patient required my direct & personal management of CC.: No Attestation - Physician/ KASIA Attestation Patient care was provided by Advanced Practice Provider:: No The physician spent face to face time with patient:: Yes Advanced Practice Provider documentation review:: Supervising physician onsite and consulted in the evaluation and care of this patient. The physician did have a face to face encounter with the patient. This chart was documented by the indicated scribe, (Khloe Peterson Scribe) and accurately reflects the services I performed and decisions made by me, Wood Meza DO, as attested by the provider's signature.
[2017-02-15] MEDS ORDERED: ZOFRAN IV PRN (20:07)
[2017-02-15] MEDS: ROCEPHIN 1 GM in NS 50 ML IV SCH (23:37)
[2017-02-15] MEDS: ICAR-C PO SCH (23:37)
[2017-02-15] MEDS: ALDACTONE PO SCH (23:38)
[2017-02-15] MEDS: CORGARD PO SCH (23:42)
[2017-02-16 05:59] LABS: INR 1.21; PROTIME 12.9 Seconds (9.2-11.7)
[2017-02-16 06:08] LABS: BASO% 0.4 % (0.0-0.8); EOS# 0.33 X1000 (0.0-0.7); EOS% 12.3 % (0.0-10.0); HEMATOCRIT 30.6 % (37.0-47.0); HEMOGLOBIN 10.4 g/dL (12.0-16.0); LYMPH# 0.83 X1000 (1.2-3.4); LYMPH% 30.9 % (20.5-51.1); MANUAL DIFF NEEDED? YES; MCH 39.1 PG (27-31); MONO# 0.21 X1000 (0.11-0.59); MONO% 7.8 % (1.7-9.3); MPV 11.2 FL (7.4-10.4); NEUT% 48.6 % (42.2-75.2); PLT 69 X1000 (130-400); RBC 2.66 XMIL (4.2-5.4)
[2017-02-16 06:14] LABS: AGAP 9; ALBUMIN 2.4 g/dL (3.5-5.0); ALKALINE PHOSPHATASE 83 U/L (32-104); BUN 16 mg/dL (8-22); CHLORIDE 110 mmol/L (98-107); COSMO 282; GOT 28 U/L (10-30); GPT 12 U/L (10-36); MAGNESIUM 1.8 mg/dL (1.5-2.7); POTASSIUM 4.2 mmol/L (3.5-5.1); SODIUM 141 mmol/L (136-145); TCO2 22 mmol/L (25-35); TOTAL BILIRUBIN 0.89 mg/dL (0.20-1.00); TOTAL PROTEIN 5.4 g/dL (6.3-8.3)
[2017-02-16 06:34] LABS: FREE T4 1.03 ng/dL (0.93-1.70)
[2017-02-16 06:56] LABS: EOS 10 % (1-10); LYMPHS 34 % (21-51); MONO 2 % (1-9)
[2017-02-16 07:09] LABS: URINE CULTURE NEEDED? NO; URINE MICRO REVIEW NEEDED? NO; URINE SOURCE CLEAN CATCH
[2017-02-16 07:13] LABS: BILIRUBIN URINE NEGATIVE (NEGATIVE); BLOOD URINE NEGATIVE (NEGATIVE); COLOR YELLOW; GLUCOSE URINE NEGATIVE (NEGATIVE); LEUKOCYTES URINE NEGATIVE (NEGATIVE); NITRITE URINE NEGATIVE (NEGATIVE); PROTEIN URINE NEGATIVE (NEGATIVE); TURBIDITY URINE CLEAR (CLEAR); UROBILINOGEN URINE NORMAL (NORMAL)
[2017-02-16 07:15] LABS: UR EPITHELIAL CELLS <10 /HPF (<10); URINE BACTERIA NEGATIVE /HPF; URINE RBC <10 /HPF (<10); URINE WBC <10 /HPF (<10)
[2017-02-16] MEDS: CENTRUM SILVER PO SCH (08:41)
[2017-02-16] MEDS: CORGARD PO SCH ×2 (08:41→22:55)
[2017-02-16] MEDS: ALDACTONE PO SCH ×2 (08:41→22:55)
[2017-02-16] MEDS: ICAR-C PO SCH ×2 (08:41→22:55)
[2017-02-16] MEDS: PROTONIX PO SCH (08:47)
[2017-02-16] MEDS ORDERED: LASIX PO SCH (09:00)
--- NOTE | 2017-02-16 09:28 | HISTORY AND PHYSICAL ---
CHIEF COMPLAINT: Nausea, vomiting and diarrhea. HISTORY OF PRESENT ILLNESS: Ms. Moreau is a 46-year-old, female. The patient was in her usual state of health, until yesterday. The patient claims she woke up this morning with pain in the abdomen, mainly in the lower abdomen. The patient claims she vomited 3 to 4 times, she had 3 to 4 loose bowel movements. The patient was feeling weak. No high-grade fever. The patient did have some chills. The patient was also complaining of chest congestion, cough with scanty sputum production, mild shortness of breath. No hemoptysis. Because of above symptoms, she came to the emergency room. The patient had CT scan of the abdomen and pelvis done, which did reveal moderately-increased pleural effusion. The patient had cirrhosis of the liver. The patient was on a high dose of diuretics. She lost significant weight. Her blood pressure was staying low. I decreased her diuretics. Lately, the patient was gaining weight and having some leg swelling. Part of her effusion could be related to decrease in the dose of her diuretics. The patient was getting minimally symptomatic. She denied any orthopnea or PND. The patient is a very vague and poor historian. She does have, at times, leg swelling. No runny nose, stuffy nose, sinus drainage. Oral intake variable. Her chest pain was atypical. Complaining of epigastric pain. No vaginal discharge, spotting, bleeding. No heat or cold intolerance. Unquantified weight gain. No further history available at this time. The patient's son recently diagnosed to have lead toxicity. ALLERGIES: Oxycodone. MEDICATIONS: Her medication includes Aldactone 25 mg daily. Her Lasix was discontinued. Nadolol 20 mg daily. The patient was on multivitamin, tramadol on p.r.n. basis, Protonix 40 mg daily. PAST MEDICAL HISTORY: Significant for large pleural effusion, requiring pleural tap recently. The patient had advanced cirrhosis of the liver, complicated by portal hypertension and gastric varices. The patient had ascites tap done many months ago. Anemia of chronic disease. Cirrhosis of the liver due to fatty liver. Recurrent bronchitis. Splenomegaly. PAST SURGICAL HISTORY: The patient had appendectomy, cholecystectomy, EGD and colonoscopy in July 2016, ascites tap in September 2016. SOCIAL HISTORY: , lives with the . The patient adopted a son about 1 year ago. Denied alcohol or substance abuse. FAMILY HISTORY: Significant for father who of pancreatic cancer. He also had abdominal and cerebral aneurysm. Mother is in the wheelchair. PHYSICAL EXAMINATION: GENERAL: Middle-aged, white, female patient, in mild distress. VITAL SIGNS: Blood pressure 102/59, pulse 74, respiration 18, temperature 98.4 degrees. SKIN: Dry skin. HEENT: Head atraumatic, normocephalic. [place] conjunctivae. Anicteric sclerae. Extraocular muscle movement normal. Fundus cannot be penetrated. Good oral hygiene. No tonsillopharyngeal congestion or exudate. Ears and nose benign. NECK: Supple. No JVD, thyromegaly, or lymphadenopathy. CHEST: Bilateral good air entry present. No rales or rhonchi. Decreased air entry, right base. Occasional wheezing. CARDIOVASCULAR: S1 and S2 heard. No gallop or thrill. ABDOMEN: Soft, globular. Bowel sounds present. Vague tenderness in right lower quadrant. No guarding or rigidity. EXTREMITIES: No cyanosis, clubbing. Minimal swelling in both legs. No acute DVT. CENTRAL NERVOUS SYSTEM: Alert, awake. Able to move all 4 limbs. ASSESSMENT: The patient admitted with: 1. Nausea, vomiting and diarrhea, most likely gastroenteritis, mostly viral. 2. The patient does have large right pleural effusion. 3. Cirrhosis of the liver, complicated by portal hypertension and esophageal varices. 4. Acute bronchitis. Possibility of underlying pneumonia cannot be ruled out. 5. I am going to check urinalysis for urinary tract infection. 6. Gastritis. PLAN: As the patient's blood pressure stays low, I am going to admit her and start her on diuretics. We will do septic workup, stool workup, IV antibiotics. Overall, plan discussed at length with the patient and her . They are in agreement. cc: Bhupendra Tompkins MD
--- NOTE | 2017-02-16 17:06 | PROGRESS NOTE ---
DATE: 02/16/2017 SUBJECTIVE: Ms Moreau is doing better. Her nausea, vomiting and diarrhea improved. Does have mild cough. No unusual expectoration. Denied any high-grade fever or chills. Does have cough with expectoration. Stool workup was negative for C difficile toxin. Patient admitted with pleural effusion and symptoms suggestive of bronchitis, pain in the right lower quadrant. OBJECTIVE: Vital signs: Noted. Lungs: Bilateral air entry present. Decreased air entry right base. CVS: S1 and S2 heard. Abdomen: Soft, globular. Bowel sounds present. MASTER BREWER: Alert, awake able to move all 4 limbs. ASSESSMENT AND PLAN: Patient does have atrophic right kidney, moderate size right pleural effusion. Her problem includes bronchitis, gastroenteritis, moderate size right pleural effusion, cirrhosis of the liver. I am going to continue conservative treatment and close observation. cc: Bhupendra Tompkins MD
[2017-02-16] MEDS: ROCEPHIN 1 GM in NS 50 ML IV SCH (22:55)
[2017-02-17] MEDS: PROTONIX PO SCH (06:37)
--- NOTE | 2017-02-17 06:48 | EKG Report ---
Test Performed on : 02/15/2017 4:29:04 PM Test Reason : CP Blood Pressure : / mmHG Vent. Rate : 078 BPM Atrial Rate : 078 BPM P-R Int : 136 ms QRS Dur : 060 ms QT Int : 428 ms P-R-T Axes : 085 054 050 degrees QTc Int : 487 ms Normal sinus rhythm. Anterior infarct , age undetermined Abnormal ECG When compared with ECG of 20-JAN-2017 17:45, Anterior infarct is now present Unconfirmed Result
--- NOTE | 2017-02-17 07:27 | PROGRESS NOTE ---
DATE: 02/17/2017 SUBJECTIVE: Ms. Moreau is doing better. She denied any nausea or vomiting. Oral intake is fair. The patient is on diuresis and also on antibiotics for possible bronchitis. OBJECTIVE: Vital Signs: Blood pressure is low normal. Her vital signs noted. Breasts: The patient noticed some lump in her breast, and according to the patient, the nurses also noticed it. Neck: Supple. No JVD. Lungs: Bilateral good air entry present. Cardiovascular: S1 and S2 heard. Abdomen: Soft and globular. Bowel sounds present. Central Nervous System: Alert, awake, able to move all 4 limbs. CONSIDERATIONS: 1. The patient is admitted with increasing right pleural effusion. 2. She does have cirrhosis of the liver. 3. Bronchitis. Questionable lump in the right breast. I did a breast exam again today. It was not conclusive. I am going to get a mammogram for further evaluation. The patient is noncompliant, so it will be better to get an inpatient mammogram. After reviewing the mammogram, we will make further recommendations. 4. Continue current treatment. I am going to increase the Aldactone and decrease Lasix. I am going to repeat blood work tomorrow. cc: Bhupendra Tompkins MD
[2017-02-17] MEDS: LASIX PO SCH ×2 (09:17→14:41)
[2017-02-17] MEDS: ALDACTONE PO SCH ×2 (09:17→22:13)
[2017-02-17] MEDS: CORGARD PO SCH ×2 (09:18→22:14)
[2017-02-17] MEDS: ICAR-C PO SCH ×2 (09:18→22:13)
[2017-02-17] MEDS: CENTRUM SILVER PO SCH (09:18)
--- NOTE | 2017-02-17 12:36 | Diag Imaging Result Doc PS360 ---
DIGITAL BILAT MAMMOGRAM DIAG, US BREAST LIMITED UNILAT-RT - 02/17/2017 INDICATION: ?breast lump COMPARISON: 07/02/2011 TECHNIQUE: Computer aided detection imaging was used. Bilateral digital diagnostic mammograms. Right breast ultrasound. FINDINGS: There is report of a palpable lump at the upper outer right breast. This area was marked with a metallic marker. On the mammograms, there are scattered fibroglandular densities. There are no suspicious findings seen. The area was carefully scanned with ultrasound. In this area there is normal predominantly fatty tissue echogenicity. No evidence of mass or cyst. IMPRESSION: No evidence of malignancy. No inflammation for breast lump. ACR BI-RADS CATEGORY 2: BENIGN FINDING NOTE: This facility is accredited by the [employer] for Mammography. A mammogram report should not delay biopsy if a dominant or clinically suspicious mass is present. Some cancers are not identified by mammography. Adenosis and dense breasts may obscure any underlying neoplasm Electronically signed by Damien Pollock 02/17/2017 12:33 PM
[2017-02-17] MEDS: ROCEPHIN 1 GM in NS 50 ML IV SCH (22:14)
[2017-02-18 05:50] LABS: BASO% 0.3 % (0.0-0.8); EOS# 0.46 X1000 (0.0-0.7); EOS% 11.9 % (0.0-10.0); HEMOGLOBIN 10.4 g/dL (12.0-16.0); LYMPH# 1.35 X1000 (1.2-3.4); LYMPH% 35.1 % (20.5-51.1); MANUAL DIFF NEEDED? YES; MCH 39.1 PG (27-31); MCHC 34.7 g/dL (33-37); MCV 112.8 FL (81-99); MONO# 0.24 X1000 (0.11-0.59); MONO% 6.2 % (1.7-9.3); MPV 11.1 FL (7.4-10.4); NEUT% 46.5 % (42.2-75.2); PLT 80 X1000 (130-400); RBC 2.66 XMIL (4.2-5.4)
[2017-02-18 06:03] LABS: EOS 6 % (1-10); LYMPHS 32 % (21-51)
[2017-02-18 06:06] LABS: AGAP 10; ALBUMIN 2.2 g/dL (3.5-5.0); ALKALINE PHOSPHATASE 80 U/L (32-104); BUN 18 mg/dL (8-22); CHLORIDE 105 mmol/L (98-107); COSMO 279; GOT 30 U/L (10-30); GPT 11 U/L (10-36); MAGNESIUM 1.7 mg/dL (1.5-2.7); POTASSIUM 3.8 mmol/L (3.5-5.1); SODIUM 139 mmol/L (136-145); TCO2 24 mmol/L (25-35); TOTAL BILIRUBIN 0.74 mg/dL (0.20-1.00); TOTAL PROTEIN 5.1 g/dL (6.3-8.3)
[2017-02-18] MEDS: PROTONIX PO SCH (06:07)
[2017-02-18 07:43] VITALS: BP 84/46
[2017-02-18] MEDS: ICAR-C PO SCH (09:54)
[2017-02-18] MEDS: CENTRUM SILVER PO SCH (09:54)
--- NOTE | 2017-02-18 17:19 | DISCHARGE SUMMARY ---
ADMISSION DATE: 02/15/2017 DISCHARGE DATE: 02/18/2017 FINAL DISCHARGE DIAGNOSES: 1. Right pleural effusion. 2. Gastroenteritis. 3. Bronchitis. 4. Cirrhosis of the liver complicated by portal hypertension and esophageal varices. 5. Gastritis and reflux disease. HISTORY: Ms. Moreau is a 46-year-old white female patient with advanced cirrhosis of the liver due to CATES. The patient presented with nausea, vomiting and diarrhea. Workup in the ER did show right pleural effusion which was moderate. Patient was not in significant distress. The patient was admitted for further care. Her nausea and vomiting improved. We started her back on her diuretics. The patient's blood pressure is staying low-normal, but she is tolerating diuretics well. Chest congestion and cough improved. The patient remains afebrile. No high-grade fever or chills. No nausea or vomiting. Oral intake is good. After she ate yesterday, she had mild nausea requiring some Zofran. Overall patient is doing better. I am planning to discharge her home today. We are going to treat her refusion with medication. OBJECTIVE: Vital Signs noted. Neck: Supple. No JVD. Lungs: Bilateral good air entry present. Cardiovascular: S1 and S2 heard. Abdomen: Soft, globular. Bowel sounds present. Extremities: No cyanosis, clubbing. No acute DVT. SQUARING MACHINE OPERATOR: Alert, awake, able to move all 4 limbs. LAB DATA: Done today: Hemoglobin 10.4, hematocrit 30, WBC count 3.85, platelet count was 80,000. Electrolytes were fairly benign. BUN 18, creatinine 0.9. Total protein 5.1, albumin 2.2. TSH 3.37, free T4 1.03, vitamin B12 and folate level normal. DIAGNOSTICS: CT scan of the abdomen and pelvis results reviewed. There was question about breast lump. I did diagnostic mammogram and it was negative for malignancy. Overall patient is doing better. I am going to discharge her home on Aldactone 50 mg twice a day and Lasix 20 mg p.o. daily. Continue her Protonix. Give her antibiotics. DISCHARGE INSTRUCTIONS: Follow up with me in 10 days. Monitor blood pressure at home. I advised her to make appointment with her can line examiner, which I did multiple times in the past. Also make appointment with her storage garage attendant. In case of more distress, call us back or go to the emergency room. Overall discharge condition satisfactory. cc: Bhupendra Tompkins MD
--- NOTE | 2017-03-04 18:48 | ED EKG INTERP ---
This chart was entered by Monica Lagos Scribe, acting as scribe for Sigrid Hair MD. EKG Interpretation - EKG Time of EKG reading by physician:: 16:29 EKG Read and Signed by:: Sigrid Hair EKG Interpretation (*Must complete 3 of following elements*): Abnormal Rate: 78 Rhythm: normal sinus rhythm [place]: normal QRS: normal MS Interval: normal ST Wave: normal Comments: anterior infarct, age undetermined Attestation - Physician/ KASIA Attestation Patient care was provided by Advanced Practice Provider:: No The physician spent face to face time with patient:: Yes Advanced Practice Provider documentation review:: Supervising physician onsite and consulted in the evaluation and care of this patient. The physician did have a face to face encounter with the patient. This chart was documented by the indicated scribe, (Monica Lagos Scribe) and accurately reflects the services I performed and decisions made by me, Sigrid Hair MD, as attested by the provider's signature.
== END 2017-02-18 12:43 | disposition home or self-care (01) ==
LOC: ED 13:40 → 4N 19:39
PROVIDERS: ADMIT Internal Medicine; ATTEND Internal Medicine

== ENCOUNTER 2018-06-30 08:47 | Observation (INO) ==
[2018-06-30] MEDS ORDERED: SODIUM CHLORIDE 0.9% INJ ONE (08:56)
[2018-06-30] MEDS ORDERED: PROTONIX IV ONE (08:56)
[2018-06-30] MEDS ORDERED: ZOFRAN IV ONE (08:58)
--- NOTE | 2018-06-30 08:58 | PROVIDER DOCUMENTATION ---
HPI-Abdominal Pain/GI Problem - General Stated Complaint: coughing blood, abd pain Time Seen by Provider: 06/30/18 08:54 Source: patient Allergies/Adverse Reactions: Patient Allergies Allergy/AdvReac Type Severity Reaction Status Date / Time oxycodone HCl * Allergy Intermediate ANAPHYLAXIS Verified 06/29/18 06:49 [From OxyContin] codeine AdvReac Mild ITCHING Verified 06/29/18 06:49 Home Medications: Home Medication List Medication Instructions Recorded Confirmed Last Taken Type Spironolactone [Aldactone] 50 mg PO DAILY tablet 08/08/17 06/24/18 06/28/18 09: 00 Rx Furosemide [Lasix] 20 mg PO DAILY 08/27/17 06/24/18 06/28/18 09:00 History Iron Carbonyl/Ascorbic Acid 1 each PO DAILY 08/27/17 06/24/18 06/28/18 09:00 History [Icar-C] Rifaximin [Xifaxan] 550 mg PO BID 08/27/17 06/24/18 06/28/18 20:00 History Multivit-Min/Iron/Folic/Lutein 1 dose PO DAILY 12/03/17 06/24/18 06/28/18 09:00 History [Centrum Silver Women Tablet] Omeprazole 40 mg PO DAILY 12/03/17 06/24/18 06/28/18 09:00 History Propranolol [Inderal] 10 mg PO BID #90 tablet 12/04/17 06/24/18 06/28/18 20:00 Rx Albuterol Sulfate Inhaler 2 puff INH BID 06/24/18 06/29/18 06/28/18 20:00 History [Ventolin Hfa] Sucralfate 1 gm PO Q6H 06/24/18 06/24/18 06/28/18 20:00 History - History of Present Illness-ABD Nature of Presenting Problems: Patient is a 48 year old white female with esophageal varices and cirrhosis, followed by Dr. Duarte who performed EGD yesterday, who presents by EMS complaining of vomiting blood since this am. Review of Systems - Adult - REVIEW OF SYSTEMS - ADULT Constitutional: denies: chills, fever Eyes: reports: no symptoms reported Ears, Nose, Mouth & Throat: reports: no symptoms reported Cardiovascular: denies: chest pain Respiratory: denies: shortness of breath Gastrointestinal: reports: nausea, rectal bleeding, vomiting Genitourinary: denies: dysuria Musculoskeletal: reports: no symptoms reported Integumentary: denies: rash Neurological: reports: no symptoms reported Psychiatric: reports: anxiety Endocrine: reports: no symptoms reported Hematologic/Lymphatic: reports: see HPI Allergic/Immunologic: reports: no symptoms reported All Other Systems: Reviewed and Negative Past History - Adult - PAST MEDICAL HISTORY-ADULT Review of Records: reports: Old Records Reviewed, Nursing Assessment Review, Medications Reviewed, Social history reviewed & non-contributory. Major Childhood Illnesses: reports: denies history Cardiovascular: reports: HTN Respiratory: reports: denies history Gastrointestinal: reports: GERD, hepatitis (C), liver disease, other (cirrhosis) Obstetrical/Gynecological: reports: denies history Genitourinary: reports: denies history Musculoskeletal: reports: denies history Neurological: reports: denies history Psychiatric: reports: denies history Endocrine/Immune: reports: anemia Other Conditions: reports: denies history - PRIOR SURGERIES/PROCEDURES Surgical/Procedure History: reports: appendectomy, cholecystectomy - IMMUNIZATION STATUS Childhood Immunizations: See Nurse Assessment Flu Vaccine: See Nurse Assessment - FAMILY HISTORY Family History: reviewed, not pertinent Physical Exam-General - CONSTITUTIONAL General Appearance: alert, no apparent distress - EYES Eyes: other (clear) - HEAD, EARS, NOSE, MOUTH & THROAT HENMT: normocephalic/atraumatic, moist mucous membranes - NECK Neck: supple - RESPIRATORY Respiratory: lungs clear - CARDIOVASCULAR Cardiovascular: regular rate, rhythm - GASTROINTESTINAL (ABDOMEN) Abdominal Exam: soft - LYMPHATIC Lymphatic: no adenopathy - MUSCULOSKELETAL Back Exam: normal inspection, no CVA tenderness Extremity: normal range of motion, non-tender - SKIN Integumentary: normal color, normal turgor, warm/dry - NEUROLOGIC Neurologic: grossly normal, no motor/sensory deficits - PSYCHIATRIC Psych/Mental Status: anxious Progress - PLAN OF CARE/RESULTS Progress/Plan/Lab Results: report given to Dr. Milelr at 0907 Result Diagrams: 06/30/18 09:15 06/30/18 09:15 - CONSULTS/PCP/HOSPITALIST Notification #1 *Consult/PCP/Hospitalist*: Dr. Miller GI doctor Time Discussed: 11:00 Reason/Comments: admit to hospitalist Consult Disposition: Admit #2 Consult: Musa MCCOY for Dr. Fischer Time Discussed: 11:20 Consult Disposition: Admit Departure - Departure Date of Disposition Decision: 06/30/18 Time of Disposition Decision: 11:23 DIAGNOSIS: Hematemesis Qualifiers: Nausea presence: with nausea Qualified Code(s): K92.0 - Hematemesis Esophageal varices Qualifiers: Esophageal varices type: unspecified type Esophageal varices bleeding: with bleeding Qualified Code(s): I85.01 - Esophageal varices with bleeding Disposition: ADMITTED INPATIENT 09 Certified Medical Emergency: Emergent Condition: Stable Referrals and Follow-Ups: Bhupendra Tompkins MD [Primary Care Provider] - - Critical Care Note This patient required my direct & personal management of CC.: No Attestation - Physician/ KASIA Attestation Patient care was provided by Advanced Practice Provider:: No The physician spent face to face time with patient:: Yes Advanced Practice Provider documentation review:: Supervising physician onsite and consulted in the evaluation and care of this patient. The physician did have a face to face encounter with the patient.
[2018-06-30 09:46] LABS: INR 1.2; PROTIME 16.1 Seconds (11.0-16.0)
[2018-06-30 09:47] LABS: PTT 32.6 Seconds (22.3-41.8)
[2018-06-30 09:56] LABS: ALB/GLOB RATIO 1.1; ALBUMIN 3.1 g/dL (3.5-5.0); BASO# 0.01 X1000 (0.0-0.2); BASO% 0.2 % (0.0-0.8); CALCIUM 8.6 mg/dL (8.8-10.2); CREATININE 1.1 mg/dL (0.5-0.9); EOS# 0.09 X1000 (0.0-0.7); HEMATOCRIT 34.9 % (37.0-47.0); HEMOGLOBIN 11.9 g/dL (12.0-16.0); LYMPH# 0.98 X1000 (1.2-3.4); LYMPH% 21.5 % (20.5-51.1); MCH 37.5 PG (27-31); MCHC 34.1 g/dL (33-37); MCV 110.1 FL (81-99); MONO# 0.41 X1000 (0.11-0.59); NEUT# 3.07 X1000 (1.4-6.5); NEUT% 67.3 % (42.2-75.2); PLT 53 X1000 (130-400); POTASSIUM 4.1 mmol/L (3.5-5.1); RBC 3.17 XMIL (4.2-5.4); RDW 13.2 % (11.5-14.5); TOTAL BILIRUBIN 1.47 mg/dL (0.20-1.00); WBC 4.56 X1000 (4.8-10.8)
[2018-06-30 11:15] LABS: EOS 2 % (1-10); LYMPHS 20 % (21-51); MONO 8 % (1-9); SEGS 70 % (42-75)
[2018-06-30] MEDS: CARAFATE PO SCH ×2 (18:15→23:21)
--- NOTE | 2018-06-30 18:23 | PROGRESS NOTE ---
DATE: 06/30/2018 REASON FOR CONSULT: Hematemesis HISTORY OF PRESENT ILLNESS: Ms. Temi Moreau is a 48 year old woman with history of GERD, s/p CCY, and decompensated CATES cirrhosis c/b ascites, bleeding varices, and PSE who presents with two episodes of scant hematemesis after having EGD yesterday showing grade 1-2 esophageal varices, gastric varix, portal hypertensive gastropathy. She reports vomiting small about of dark red blood prior to admission and in the ER. She describes presentation similar to when she presented with variceal bleed. She complains of associated nausea, SOB, CP, RLQ abdominal pain. No worsening abdominal distension or LE edema. No confusion or jaundice. Patient denies alcohol use and reports compliance with medications. REVIEW OF SYMPTOMS: as per HPI; otherwise, 12-point ROS negative PAST MEDICAL HISTORY: GERD, CATES cirrhosis c/b ascites, bleeding varices, and PSE PAST SURGICAL HISTORY: CCY, hysterectomy HOME MEDICATION: Aldactone, Lasix, Icar-C, Xifaxan, multivitamin, Prilosec, Inderal, albuterol inhaler and Carafate. ALLERGIES: oxycodone FAMILY HISTORY: Father had hepatomegaly SOCIAL HISTORY: No T/E/D PHYSICAL EXAM VS: AF HR 74 BP 109/65 RR 18 O2 100% RA GEN: awake, alert, NAD HEENT: Sclerae anicteric. Moist mucous membranes. Neck: No JVD. No lymphadenopathy Cardiac: Regular rate and rhythm, no murmurs. Lungs: CTAB, no wheezing or crackles Abdomen: soft, NT/ND, NABS, no rebound or guarding Extremities: No clubbing, cyanosis or edema. Skin: WWP, no rashes Neurologic: Nonfocal. no asterixis Psychiatric: Normal affect. LABORATORY DATA CO2 21 BUN 20 Cr 1.1 WBC 4.6 hgb 11.0 plts 53K Alb 3.1 Tbili 1.5 AST 32 ALT 17 ALP 99 INR 1.2 ASSESSMENT AND PLAN Ms. Temi Moreau is a 48 year old woman with history of GERD, s/p CCY, and decompensated CATES cirrhosis c/b ascites, bleeding varices, and PSE who presents with hematemesis. EGD yesterday showed esophagea and gastric varices as well as PHG. VSS. Hgb stable. However, she has had variceal bleed in the past and should have esophageal banding. #Hematemesis: I suspect bleeding PHG. Presentation atypical for variceal bleeding - continue PPI IV BID - low threshold to start octreotide - CTX q24 hours in setting of GI bleed - NPO after MN for diagnostic EGD tomorrow #Anemia: from above #CATES cirrhosis - Ascites: continue aldactone, lasix - EV: on propranolol: as above - PSE: continue Xifaxin - HCC screening: q6mo liver US - OLT: low MELD - IMM: will need to check HAV IgG, HBsAb; immunize if negative Thank you for this consult. Will follow with you. Please call with questions or concerns. cc: Bhupendra Tompkins MD MTDD
[2018-06-30 18:26] LABS: HEMATOCRIT 32.3 % (37.0-47.0)
[2018-06-30] MEDS ORDERED: POTASSIUM CHLORIDE 10 MEQ in NS 1,000 ML IV SCH (19:13)
[2018-06-30] MEDS ORDERED: SODIUM CHLORIDE 0.9% INJ SCH (19:13)
[2018-06-30] MEDS: PROTONIX IV SCH (19:13)
[2018-06-30] MEDS: VENTOLIN HFA INH SCH (19:30)
--- NOTE | 2018-06-30 20:31 | HISTORY AND PHYSICAL ---
CHIEF COMPLAINT: Hematemesis. A 48-year-old white female patient, known case of fatty liver complicated by cirrhosis of the liver. The patient had upper GI endoscopy done yesterday found to have esophageal varices. The patient claims she vomited this morning. It was small amount of fresh blood. The patient got concerned because of her varices. She called ambulance and came to emergency room. The patient evaluated in the ER. Her initial blood pressure was 109/65. She had blood work done. They talked to statistical machine mechanic investigation division sergeant who decided to admit the patient for observation and further workup. The patient was complaining of epigastric discomfort, nausea. Before I evaluated patient in the afternoon the patient had another bout of vomiting where she did notice fresh blood. Patient denied any bleeding per rectum. The patient was feeling weak. She did have nausea. No hematuria, nosebleed or hemoptysis. The patient was complaining of chest congestion, cough with yellowish expectoration, feverish feeling and chills. Patient claims compliance to her proton pump inhibitor. She denied any use of NSAIDs. No typical chest pain, palpitation, orthopnea or PND. No heat or cold intolerance. The patient claims her leg gets numb especially at nighttime mainly the left leg. No vaginal discharge, spotting, bleeding, unquantified weight loss. No heat or cold intolerance. The patient is noncompliant to followup. Patient is nonsmoker. Denied any back pain. No further history available at this time. ALLERGIES: Oxycodone. HOME MEDICATION: Includes Aldactone, Lasix, Icar-C, Xifaxan, multivitamin, Prilosec, Inderal, albuterol inhaler and Carafate. PAST MEDICAL HISTORY: Fatty liver complicated by cirrhosis of the liver, esophageal varices, ascites, mild hepatitic encephalopathy, gastritis and reflux disease, portal hypertension, iron- deficiency anemia, history suggestive of bronchitis. The patient had abnormal Pap smear in the past. Did not go for proper followup. History suggestive of COPD. PAST SURGICAL HISTORY: Appendectomy and cholecystectomy. PERSONAL HISTORY: , nonsmoker, denied alcohol or substance abuse. REVIEW OF SYSTEMS: As per HPI otherwise unobtainable. FAMILY HISTORY: Noncontributory. PHYSICAL EXAMINATION: GENERAL: Middle-aged white female patient in mild distress. VITAL SIGNS: Blood pressure 109/54, pulse 78, respirations 16, temperature 98.7 degrees. SKIN: Dry turgor. HEENT: Head atraumatic, normocephalic. Athalia conjunctivae. Anicteric sclerae. Extraocular muscle movement normal. Fundus cannot be penetrated. Good oral hygiene. No tonsillopharyngeal congestion or exudate. Ears and nose benign. NECK: Supple. No JVD, thyromegaly or lymphadenopathy. CHEST: Bibasilar crepitation, occasional wheezing. CARDIOVASCULAR: S1 and S2 heard. No gallop or thrill. ABDOMEN: Soft, globular. Bowel sounds present. Mild epigastric tenderness. No guarding or rigidity. EXTREMITIES: No cyanosis, clubbing. No acute DVT. Minimal swelling right leg which is chronic. WAX BALL MOLDER: Alert, awake, able to move all 4 limbs. Answering questions fairly well. LABORATORY DATA: WBC count 4.56, hemoglobin 11, hematocrit 32.3, platelet count was 53,000. PT/INR 1.2, PTT 32.6. Electrolytes BUN 20, creatinine 1.1, total bilirubin 1.47, AST was 32. Vitamin B12 1024. Ammonia level was normal. CONSIDERATION: Patient admitted with upper gastrointestinal bleed. Patient does have a history of esophageal varices. She recently had upper gastrointestinal endoscope done yesterday which revealed esophageal varices, gastric varices, portal hypertensive gastropathy. The patient does have cirrhosis of the liver and portal hypertension, history suggestive of acute bronchitis. Her other problems include gastritis, left leg numbness etiology not clear. PLAN: Admit patient. Serial hemoglobin and hematocrit, close observation, p.r.n. bronchodilator treatment. Empirically starting patient on antibiotics. GI consult. Overall plan discussed at length with the patient and she is in agreement. cc: Bhupendra Tompkins MD
[2018-06-30] MEDS: INDERAL PO SCH (22:42)
[2018-06-30] MEDS: XIFAXAN PO SCH ×2 (22:43→23:21)
[2018-06-30] MEDS: PATIENT'S OWN MED PO SCH (23:54)
[2018-07-01] MEDS: PROTONIX IV SCH (06:12)
[2018-07-01] MEDS ORDERED: ROCEPHIN 1 GM in NS 50 ML IV SCH (07:00)
--- NOTE | 2018-07-01 07:07 | PROGRESS NOTE ---
DATE: 07/01/2018 SUBJECTIVE: Ms. Moreau is doing fairly well. No major abdominal pain. No high-grade fever or chills. The patient claims she spit up some blood yesterday 1 more time. The patient was able to rest well. No runny nose, stuffy nose, sinus drainage. No heat or cold intolerance. Cough and chest congestion improving. PHYSICAL EXAMINATION: Vital signs: Noted blood pressure 109/62, pulse 76, respiration 18, temperature 97.8 degrees. Neck: Supple. No JVD. Lungs: Bibasilar crepitations. Heart: S1 and S2 heard. Abdomen: Soft, globular. Mild epigastric tenderness. No guarding or rigidity. Extremities: No cyanosis, clubbing. No acute DVT. Central nervous system: Alert, awake. Able to move all 4 limbs. LABORATORY: Lab data done yesterday reviewed a.m. blood work is pending. IMPRESSION: 1. Patient admitted with upper gastrointestinal bleed. Her last hemoglobin was 11, hematocrit 32.3. 2. The patient does have portal hypertension and esophageal varices, thrombocytopenia, acute bronchitis. I started her on Rocephin. The patient is on proton pump inhibitor which will continue. 3. History suggestive of portal hypertension. 4. Gastritis. PLAN: Continue current treatment. The patient is scheduled to have upper GI endoscopy today. After reviewing the results, will make necessary recommendations. cc: Bhupendra Tompkins MD
[2018-07-01] MEDS ORDERED: DIPRIVAN 1% ONE (07:16)
[2018-07-01] MEDS ORDERED: XYLOCAINE-MPF 2% ONE (07:16)
[2018-07-01 07:29] LABS: INR 1.25; PROTIME 16.7 Seconds (11.0-16.0)
[2018-07-01 07:38] LABS: AGAP 10; ALB/GLOB RATIO 0.8; ALBUMIN 2.5 g/dL (3.5-5.0); ALKALINE PHOSPHATASE 74 U/L (32-104); BUN 22 mg/dL (8-22); CALCIUM 8.3 mg/dL (8.8-10.2); CHLORIDE 109 mmol/L (98-107); COSMO 282; CREATININE 0.9 mg/dL (0.5-0.9); ESTIMATED GFR > 60; GLUCOSE 78 mg/dL (70-104); GOT 27 U/L (10-30); GPT 14 U/L (10-36); MAGNESIUM 1.8 mg/dL (1.5-2.7); POTASSIUM 4.4 mmol/L (3.5-5.1); SODIUM 140 mmol/L (136-145); TCO2 21 mmol/L (25-35); TOTAL BILIRUBIN 1.78 mg/dL (0.20-1.00); TOTAL PROTEIN 5.5 g/dL (6.3-8.3)
--- NOTE | 2018-07-01 07:38 | EKG Report ---
Test Performed on : 07/01/2018 06:50:29 AM Test Reason : CP Blood Pressure : / mmHG Vent. Rate : 073 BPM Atrial Rate : 073 BPM P-R Int : 192 ms QRS Dur : 084 ms QT Int : 432 ms P-R-T Axes : 075 075 067 degrees QTc Int : 475 ms Normal sinus rhythm. Normal ECG When compared with ECG of 11-MAR-2018 15:54, No significant change was found Confirmed by Karan Arredondo MD ([id number]) on 07/01/2018 8:42:25 AM
[2018-07-01 07:47] LABS: EOS# 0.07 X1000 (0.0-0.7); EOS% 3.3 % (0.0-10.0); HEMATOCRIT 31.3 % (37.0-47.0); HEMOGLOBIN 10.4 g/dL (12.0-16.0); MCH 37.4 PG (27-31); MCHC 33.2 g/dL (33-37); MCV 112.6 FL (81-99); MONO# 0.17 X1000 (0.11-0.59); NEUT# 1.18 X1000 (1.4-6.5); NEUT% 55.7 % (42.2-75.2); PLT 53 X1000 (130-400); RBC 2.78 XMIL (4.2-5.4); RDW 13.6 % (11.5-14.5); WBC 2.12 X1000 (4.8-10.8)
[2018-07-01 08:03] LABS: BANDS 2 % (0-1); EOS 2 % (1-10); LYMPHS 28 % (21-51); MONO 2 % (1-9); SEGS 66 % (42-75)
[2018-07-01 08:04] LABS: HYPOCHROM 1+
[2018-07-01] MEDS: CENTRUM SILVER PO SCH (09:05)
[2018-07-01] MEDS: LASIX PO SCH (09:05)
[2018-07-01] MEDS: XIFAXAN PO SCH ×2 (09:05→20:25)
[2018-07-01] MEDS: INDERAL PO SCH ×2 (09:05→20:25)
[2018-07-01] MEDS: LACTULOSE PO SCH ×3 (09:06→20:25)
[2018-07-01] MEDS: POTASSIUM CHLORIDE 10 MEQ in NS 1,000 ML IV SCH (09:06)
[2018-07-01] MEDS: PATIENT'S OWN MED PO SCH ×2 (09:06→21:12)
--- NOTE | 2018-07-01 09:52 | OPERATIVE NOTE ---
PROCEDURE DATE : 07/01/2018 PROCEDURE: Upper GI endoscopy. PROVIDER: Edward Miller M.D. INDICATIONS: Hematemesis, history of bleeding varices. MEDICATIONS: Monitored anesthesia care. PROCEDURE: Prior to the procedure, history and physical was performed. The patient's medications and allergies were reviewed. The patient's previous tolerance of anesthesia was also reviewed. The risks and benefits of the procedure and the sedation options and risks were discussed with the patient. All questions were answered. Informed consent was obtained after reviewing the risks and benefits. The patient was deemed in satisfactory condition to undergo the procedure. After informed consent was obtained, the scope was passed under direct visualization. Throughout the procedure, the patient's blood pressure, pulse and oxygen saturations were monitored continuously. The endoscope was introduced to the mouth and advanced to the second part of the duodenum. The upper GI endoscopy was accomplished without difficulty. The patient tolerated the procedure well. COMPLICATIONS: None. ESTIMATED BLOOD LOSS: Minimal. FINDINGS: - Two columns of grade 1 esophageal varices without stigmata of recent bleeding - Scarring from prior banding seen in the lower esophagus. - Mild portal hypertensive gastropathy in stomach. Retroflexion in the stomach did not reveal any gastric varices. - Normal duodenum IMPRESSION: - Grade 1 esophageal varices - Scarring from prior banding - Mild portal hypertensive gastropathy RECOMMENDATIONS: - Resume low sodium diet - Stop IV proton pump inhibitor. - Stop ceftriaxone for SBP prophylaxis - Patient is okay to be discharged from a GI standpoint with outpatient follow- up cc: Bhupendra Tompkins MD MTDD
[2018-07-01] MEDS: VENTOLIN HFA INH SCH ×2 (11:30→19:30)
[2018-07-01] MEDS: DUONEB (A & A) INH SCH ×2 (16:30→23:20)
[2018-07-01 17:38] LABS: HEMATOCRIT 33.1 % (37.0-47.0); HEMOGLOBIN 11.3 g/dL (12.0-16.0)
[2018-07-01 20:37] LABS: HEMATOCRIT 31.2 % (37.0-47.0); HEMOGLOBIN 10.4 g/dL (12.0-16.0)
[2018-07-02] MEDS: DUONEB (A & A) INH SCH ×2 (03:15→09:51)
[2018-07-02] MEDS: VENTOLIN HFA INH SCH ×2 (03:49→08:27)
[2018-07-02] MEDS: POTASSIUM CHLORIDE 10 MEQ in NS 1,000 ML IV SCH (04:53)
[2018-07-02] MEDS ORDERED: ROCEPHIN 1 GM in NS 50 ML IM SCH (07:00)
[2018-07-02] MEDS ORDERED: XYLOCAINE-MPF 1% INJ SCH (07:00)
[2018-07-02] MEDS ORDERED: ROCEPHIN IM SCH (07:00)
[2018-07-02 07:34] VITALS: BP 94/53
[2018-07-02] MEDS: CENTRUM SILVER PO SCH (08:57)
[2018-07-02] MEDS: INDERAL PO SCH (08:57)
[2018-07-02] MEDS: XIFAXAN PO SCH (08:59)
[2018-07-02] MEDS: LASIX PO SCH (09:00)
--- NOTE | 2018-07-02 12:04 | GASTROENTEROLOGY PROGRESS NOTE ---
DATE: 07/02/2018 SUBJECTIVE: Ms. Moreau is resting in bed. She is feeling better. She was seen recently by ENT doctor a few days ago, and she had a cautery done for recurrent epistaxis. I believe that could have caused her to have spit up some blood. Her EGD done on 07/01/2018 showed evidence of esophageal varices with no active bleeding. She had mild portal hypertensive gastropathy. OBJECTIVE: Vital signs: Temperature 97.9, pulse rate 62, heart rate 16, blood pressure 94/53, saturating 100% on room air. General Appearance: Moderately built, lying in bed, in no acute distress. HEENT: Pale conjunctivae. No icterus. Neck: Supple. Abdomen: Soft, nontender, nondistended. No guarding or rebound. Extremities: No cyanosis, clubbing. Neurologic: She is alert, awake, oriented x3. DIAGNOSTIC STUDIES: Hemoglobin is 10.4, hematocrit 31.2, white count of 2.12, platelet count of 83,000. INR 1.25, PT of 16.7. Sodium 140, potassium 4.4, chloride 109, bicarbonate 20, anion gap 10, BUN of 22, creatinine 0.9, glucose of 78, calcium is 8.3. Magnesium 1.8. Total bilirubin is 1.78, AST 27, ALT 14, alkaline phosphatase 74, total protein 5.2, albumin of 2.5. Lipase of 42. B12 of 1024. IMPRESSION AND PLAN: Cryptogenic cirrhosis, question of fatty liver disease, complicated with portal hypertension, esophageal varices, portal hypertensive gastropathy, thrombocytopenia, coagulopathy, anemia, and recurrent epistaxis. She does history of hepatic encephalopathy. RECOMMENDATIONS: We will continue on her home medications. She will continue on Aldactone 50 mg once daily and Lasix 20 mg daily. She will get repeat blood work done every 3 to 6 months. She will repeat ultrasound every 6 months. She will continue on Xifaxan 550 mg p.o. b.i.d. and lactulose 30 mL t.i.d. and hold for more than 3 bowel movements in 24 hours. She will continue omeprazole 40 mg daily. She will continue Iron C b.i.d. and multivitamin once daily. She will avoid any spicy foods. Avoid excessive tea, coffee, soda, tomatoes, onions, spicy foods. She will continue follow up with us as well as [facility] for further management of liver cirrhosis. She will see her ENT physician for relook at recurrent epistaxis and for possible management. The above plan was discussed with the patient and all questions were answered. cc: MD Bhupendra Hidalgo MD
--- NOTE | 2018-07-02 14:38 | DISCHARGE SUMMARY ---
ADMISSION DATE: 06/30/2018 DISCHARGE DATE: 07/02/2018 FINAL DISCHARGE DIAGNOSES: 1. Upper gastrointestinal bleed. 2. Esophageal varices. 3. Portal hypertension. 4. Cirrhosis of the liver. 5. Acute bronchitis. 6. Blood-loss anemia. HOSPITAL COURSE: Ms. Moreau is a 48-year-old white female patient admitted with hematemesis. The patient had episode of vomiting small amount of blood at home. She called EMS. Came to emergency room. Evaluated by ER physician. Her hemoglobin and hematocrit on admission was around 11.9 and 34.9. The patient's ER physician contacted data capture clerk. Patient had upper GI endoscopy done day prior. They decided to admit the patient for observation because patient had portal hypertension, esophageal varices. The patient underwent upper GI endoscope yesterday which revealed grade 1 esophageal varices, scarring from previous bending, mild portal hypertensive gastropathy. No active bleeding. Public Administration Teacher recommended patient is stable to be discharged. Yesterday, the patient had symptoms suggestive of bronchitis and she wanted to wait. We started patient on diet. She is tolerating it well. No nausea or vomiting. No fever or chills. Denied any more bleeding. Patient is ready to be discharged. OBJECTIVE: Vital Signs: Vital signs noted. Neck: Supple. No JVD. Lungs: Bilateral good air entry present. Cardiovascular: S1 and S2 heard. Abdomen: Soft, nontender. Bowel sounds present. Extremities: No cyanosis, clubbing. No acute DVT. Central Nervous System: Alert, awake. Able to move all 4 limbs. PLAN: Overall, patient is stable to be discharged. Her last hemoglobin 10.4, hematocrit 31.2, but no active bleeding. Electrolytes checked yesterday, were stable. Ammonia level was 43, vitamin B12 was 1024. Advised to monitor blood pressure at home. I am going to give her Ceftin for bronchitis. Fall precaution. In case of more distress, call us back or go to emergency room. cc: Bhupendra Tompkins MD
== END 2018-07-02 12:31 | disposition home or self-care (01) ==
LOC: SUPCPDRO → ED 08:47 → EDIPHOLD 08:47 → 3N 20:30
PROVIDERS: ADMIT Internal Medicine; ATTEND Internal Medicine
CPT/HCPCS: 80053; 82140; 82607; 83690; 83735; 85014; 85018; 85025; 85610; 85730; 86850; 86900; 86901; 93005; 93010; 94640; 94761; 96374; 96376; 99285; A9270; C9113; J0696; J2405; J3480; J7030; S0164